=== PATIENT | female | born 1985 | race Caucasian/White ===

== ENCOUNTER 2019-01-16 17:42 | Emergency (ER) | payer MEDICAID, OTHER ==
[~2019-01-16] VITALS: Ht 162.6 cm; Wt 86.2 kg
[~2019-01-16 17:42] MED LIST: CEPH-38; CEPH-38 PO; CEPH500C; CPR500T PO; DCS100C PO; FRS325T PO; HYDR1TAB75 PO; IBP800T PO; NS.65NA45; ONDAN4ODT PO; PREN1TAB39 PO
--- NOTE | 2019-01-16 18:27 | NUR ---
pt states she can not urinate right now
[2019-01-16] MEDS ORDERED: HYDROcodone/APAP 5 MG/325 MG (LORTAB) TAB PO ONE (18:45)
[2019-01-16 18:52] LABS: BILIRUBIN,URINE NEGATIVE (NEGATIVE); CLARITY,URINE SLIGHTLY CLOUDY; COLOR,URINE YELLOW; GLUCOSE, URINE (UA) NEGATIVE (NEGATIVE); KETONES,URINE NEGATIVE (NEGATIVE); LEUKOCYTE ESTERASE ,URINE 3+ (NEGATIVE); NITRITE,URINE NEGATIVE (NEGATIVE); PH,URINE 6 (5-9); PROTEIN,URINE 2+ (NEGATIVE); UROBILINOGEN,URINE NORMAL (NORMAL)
[2019-01-16 18:59] LABS: BACTERIA,URINE MODERATE /HPF; RBC,URINE 50-100 /HPF; WBC,URINE >100 /HPF
--- NOTE | 2019-01-16 19:12 | ED Abdominal Pain ---
General Chief Complaint: Abdominal/GI Problems Stated Complaint: ABD AND BACK PAIN Nursing Triage Note: THE PT IS AMBULATORY TO THE ROOM WITHOUT DIFFICULTY. NO DISTRESS IS SEEN ON ARRIVAL. LOC IS NORMAL FOR TYHE PT. THE PT IS C/O SOME ABD PAIN THAT STYARTED YESTERDAY. Sepsis Screen: No Definite Risk Source of Information: Patient Exam Limitations: No Limitations History of Present Illness Date Seen by Provider: Jan 16, 2019 Time Seen by Provider: 19:09 Initial Comments ER with reports of left lower abdominal pain since last night nausea but no vomiting. No fevers or chills. She did report a little bloody vaginal discharge today. Does have an IUD. Does have some pressure with urination. Timing/Duration: 1-2 Days Severity/Quality: Moderate Location: LLQ Radiation: RLQ Activities at Onset: None Allergies and Home Medications Allergies Coded Allergies: sulfamethoxazole (Unverified Allergy, Mild, 07/04/09) trimethoprim (Unverified Allergy, Mild, 07/04/09) Penicillins (Verified Allergy, Unknown, 10/16/08) Uncoded Allergies: PEROXIDE (Allergy, Mild, 07/04/09) Home Medications Cefuroxime Axetil 500 Mg Tablet, 500 MG PO BID Prescribed by: MARIA G BRASHER on 01/16/191915 Patient Home Medication List Home Medication List Reviewed: Yes Review of Systems Review of Systems Constitutional: see HPI; No chills, No fever EENTM: No Symptoms Reported Respiratory: No Symptoms Reported Cardiovascular: No Symptoms Reported Gastrointestinal: See HPI, Abdominal Pain; Denies Constipated, Denies Diarrhea; Nausea Genitourinary: See HPI Musculoskeletal: no symptoms reported Skin: no symptoms reported Psychiatric/Neurological: No Symptoms Reported Endocrine: No Symptoms Reported Hematologic/Lymphatic: No Symptoms Reported Past Rabqaxp-Eyxjon-Uvdwfu Hx Patient Social History Alcohol Use: Occasionally Uses Recreational Drug Use: No Smoking Status: Light Tobacco Smoker Recent Foreign Travel: No Contact w/Someone Who Travel: No Recent Infectious Disease Expo: No Past Medical History Reproductive Disorders: 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 0oz. [id number]; 0.0 BMI Method:Estimated General Appearance: WD/WN, no apparent distress HEENT: PERRL/EOMI, normal ENT inspection Respiratory: no respiratory distress, no accessory muscle use Gastrointestinal: normal bowel sounds, soft, tenderness Extremities: normal range of motion, non-tender Neurologic/Psychiatric: alert, normal mood/affect, oriented x 3 Skin: normal color, warm/dry Progress/Results/Core Measures Results/Orders Lab Results Laboratory Tests Test 01/16/19 18:47 01/16/19 19:15 Range/Units Urine Color YELLOW Urine Clarity SLIGHTLY CLOUDY Urine pH 6 5-9 Urine Specific Baxley 1.025 H 1.016-1.022 Urine Protein 2+ H NEGATIVE Urine Glucose (UA) NEGATIVE NEGATIVE Urine Ketones NEGATIVE NEGATIVE Urine Nitrite NEGATIVE NEGATIVE Urine Bilirubin NEGATIVE NEGATIVE Urine Urobilinogen NORMAL NORMAL MG/DL Urine Leukocyte Esterase 3+ H NEGATIVE Urine RBC (Auto) 5+ H NEGATIVE Urine RBC 50-100 H /HPF Urine WBC >100 H /HPF Urine Squamous Epithelial Cells 5-10 /HPF Urine Crystals NONE /LPF Urine Bacteria MODERATE H /HPF Urine Casts NONE /LPF Urine Mucus SMALL H /LPF Urine Culture Indicated YES White Blood Count 13.3 H 4.3-11.0 10^3/uL Red Blood Count 4.02 L 4.35-5.85 10^6/uL Hemoglobin 11.5 11.5-16.0 G/DL Hematocrit 36 35-52 % Mean Corpuscular Volume 90 80-99 FL Mean Corpuscular Hemoglobin 29 25-34 PG Mean Corpuscular Hemoglobin Concent 32 32-36 G/DL Red Cell Distribution Width 15.5 H 10.0-14.5 % Platelet Count 170 130-400 10^3/uL Mean Platelet Volume 11.9 H 7.4-10.4 FL Neutrophils (%) (Auto) 74 42-75 % Lymphocytes (%) (Auto) 16 12-44 % Monocytes (%) (Auto) 8 0-12 % Eosinophils (%) (Auto) 2 0-10 % Basophils (%) (Auto) 0 0-10 % Neutrophils # (Auto) 9.8 H 1.8-7.8 X 10^3 Lymphocytes # (Auto) 2.1 1.0-4.0 X 10^3 Monocytes # (Auto) 1.1 H 0.0-1.0 X 10^3 Eosinophils # (Auto) 0.3 0.0-0.3 10^3/uL Basophils # (Auto) 0.0 0.0-0.1 10^3/uL Sodium Level 137 135-145 MMOL/L Potassium Level 4.0 3.6-5.0 MMOL/L Chloride Level 107 98-107 MMOL/L Carbon Dioxide Level 21 21-32 MMOL/L Anion Gap 9 5-14 MMOL/L Blood Urea Nitrogen 12 7-18 MG/DL Creatinine 0.68 0.60-1.30 MG/DL Estimat Glomerular Filtration Rate > 60 BUN/Creatinine Ratio 18 Glucose Level 82 70-105 MG/DL Calcium Level 9.2 8.5-10.1 MG/DL B-Type Natriuretic Peptide 21.6 <100.0 PG/ML My Orders Orders - MARIA G BRASHER FLARE BREAKER Ua Culture If Indicated (01/16/19 18:06) Urine Bedside (01/16/19 18:06) BNP (01/16/19 18:24) Wet Prep (01/16/19 18:37) Neisseria Gonorrhea Swab (01/16/19 18:37) Genital Culture (01/16/19 18:37) Us Non Ob Pelvis Comp/Transvag (01/16/19 18:37) Hydrocodone/Apap 5/325 Tablet (Lortab 5 (01/16/19 18:45) Urine Culture (01/16/19 18:47) Levofloxacin Tablet (Levaquin Tablet) (01/16/19 19:15) Cbc With Automated Diff (01/16/19 19:24) Basic Metabolic Panel (01/16/19 19:24) Medications Given in ED Current Medications Medications Dose Ordered Sig/Timmy Route Start Time Stop Time Status Last Admin Dose Admin Acetaminophen/ Hydrocodone Bitart 1 tab ONCE ONCE PO 01/16/19 18:45 01/16/19 18:46 DC 01/16/19 19:03 1 TAB Levofloxacin 500 mg ONCE ONCE PO 01/16/19 19:15 01/16/19 19:16 DC 01/16/19 19:31 500 MG Vital Signs/I&O 01/16/19 01/16/19 18:08 18:15 Temp 99.2 99.2 Pulse 78 78 Resp 16 16 B/P (MAP) 119/80 (93) 119/80 (93) Blood Pressure Mean: 93 Departure Impression Primary Impression: Urinary tract infection Qualified Codes: N30.01 - Acute cystitis with hematuria Disposition: HOME, SELF-CARE Condition: Stable Departure-Patient Inst. Decision time for Depature: 19:15 Referrals: [facility] (PCP/Family) Primary Care Physician Patient Instructions: Urinary Tract Infection, Adult (DC) Add. Discharge Instructions: 1. Antibiotics as directed 2. Return for any concerns 3. Follow-up with doctor next week 4. All discharge instructions reviewed with patient and/or family. Voiced understanding. Scripts Hydrocodone Bit/Acetaminophen (Hydrocodone/Acetaminophen 5/325mg Tablet) 1 Tab Tab 1-2 EACH PO Q4H PRN for PAIN-MODERATE MDD 10 for 3 Days, #5 TAB 0 Refills Prov: MARIA G BRASHER APRN 01/16/19 Cefuroxime Axetil (Cefuroxime) 500 Mg Tablet 500 MG PO BID, #10 TAB Prov: MARIA G BRASHER APRN 01/16/19 MARIA G BRASHER APRN Jan 16, 2019 19:12
[2019-01-16] MEDS ORDERED: LEVOFLOXACIN 500 MG TAB (LEVAQUIN) PO ONE (19:15)
[2019-01-16] MEDS ORDERED: CEFU500T63 PO (19:16)
--- NOTE | 2019-01-16 19:24 | Diagnostic Imaging Report ---
PROCEDURE: US Non-ob pelvis comp/trans. TECHNIQUE: Multiple realtime grayscale images were obtained of the pelvis in various projections endovaginally. Transabdominal imaging was also performed. INDICATION: Abdominal pain and back pain. FINDINGS: Uterus measures 9.3 x 4.9 x 4.8 cm. Patient does have an IUD. IUD appears to be in an appropriate location within the endometrial canal. Endometrial thickness is 3 mm. No myometrial mass is seen. There are small cervical nabothian cysts Right ovary was not visualized. Left ovary measures 3.7 x 3.8 x 2.6 cm. Blood flow is present. There are small follicles present. Small amount of free fluid in posterior cul-de-sac is identified. IMPRESSION: 1. An IUD appears to be appropriately located in the endometrial canal. 2. Nonvisualized right ovary. 3. Otherwise unremarkable study. Dictated by: Dictated on workstation # [id number]
[2019-01-16 19:31] LABS: BASOPHILS % (AUTO) 0 % (0-10); EOSINOPHILS # (AUTO) 0.3 10^3/uL (0.0-0.3); EOSINOPHILS % (AUTO) 2 % (0-10); HEMATOCRIT 36 % (35-52); HEMOGLOBIN 11.5 G/DL (11.5-16.0); LYMPHOCYTES # (AUTO) 2.1 X 10^3 (1.0-4.0); LYMPHOCYTES % (AUTO) 16 % (12-44); MEAN CORPUSCULAR HEMOGLOBIN 29 PG (25-34); MEAN CORPUSCULAR HGB CONC 32 G/DL (32-36); MEAN CORPUSCULAR VOLUME 90 FL (80-99); MEAN PLATELET VOLUME 11.9 FL (7.4-10.4); MONOCYTES # (AUTO) 1.1 X 10^3 (0.0-1.0); MONOCYTES % (AUTO) 8 % (0-12); NEUTROPHILS # (AUTO) 9.8 X 10^3 (1.8-7.8); NEUTROPHILS % (AUTO) 74 % (42-75); PLATELET COUNT 170 10^3/uL (130-400); RED CELL DISTRIBUTION WIDTH 15.5 % (10.0-14.5); WHITE BLOOD COUNT 13.3 10^3/uL (4.3-11.0)
[2019-01-16 19:41] LABS: BUN/CREATININE RATIO 18; CALCIUM 9.2 MG/DL (8.5-10.1); CARBON DIOXIDE 21 MMOL/L (21-32); CHLORIDE 107 MMOL/L (98-107); CREATININE SERUM 0.68 MG/DL (0.60-1.30); GFR ESTIMATED > 60; GLUCOSE 82 MG/DL (70-105); SODIUM 137 MMOL/L (135-145)
[2019-01-16] MEDS ORDERED: ACHD5005 PO (19:51)
[2019-01-16 19:53] VITALS: BP 134/78
--- OUTSIDE RECORDS SUMMARY | 2019-01-17 00:13 | XMS REPORT ---
Author Author Migration, Doctor Organization [facility] Address Unknown Phone Unavailable Care Team Providers Care Surgical Supply Assistant Name Role Phone Migration, Doctor Unavailable Unavailable PROBLEMS Type Condition ICD9-CM Code HWD02-MO Code Onset Dates Condition Status SNOMED Code Problem Allergic rhinitis due to pollen J30.1 Active 95094515 Problem Seasonal allergic rhinitis due to pollen J30.1 Active 77351124 Problem Constipation, unspecified constipation type K59.00 Active 00508178 Problem Morbid (severe) obesity due to excess calories E66.01 Active 975187716 Problem Routine health maintenance Z00.00 Active 101579795 Problem History of vitamin D deficiency Z86.39 Active 202324941 Problem Body mass index (BMI) of 45.0-49.9 in adult Z68.42 Active 471931583 ALLERGIES No Information ENCOUNTERS Encounter Location Date Diagnosis [facility] [id number] [place] [address] Oct, Morbid obesity E66.01 ; Acute sore throat J02.9 and Strep pharyngitis J02.0 [facility] [id number] [place] [address] Jan, 2018 Viral upper respiratory infection J06.9 and BMI 45.0-49.9, adult Z68.42 [facility] [id number] [place] [address] Apr, Right anterior knee pain M25.561 [facility] [address] [address] Nov, Left acute otitis media H66.92 and Seasonal allergic rhinitis due to pollen J30.1 [facility] [id number] [place] [address] Feb, [facility] [address] [address] Feb, Routine health maintenance Z00.00 ; History of vitamin D deficiency Z86.39 ; Body mass index (BMI) of 45.0-49.9 in adult Z68.42 ; Morbid (severe) obesity due to excess calories E66.01 and Allergic rhinitis due to pollen J30.1 [place] [address] [address] Jan, Muscle spasm M62.838 [place] [address] [address] December, Polyuria R35.8 ; Lower abdominal pain R10.30 and Slow transit constipation K59.[address] [address] December, Allergic rhinitis J30.9 ; Leg cramps R25.2 and Anxiety F41.9 [place] [address] [address] Apr, Eczematous dermatitis 692.9 [place] [address] [address] Mar, Sinusitis 473.9 and Otitis media of both ears 382.9 [place] [address] [address] Nov, [place] [address] [address] Nov, [place] [address] [address] Sep, [place] [address] [address] Sep, [place] [address] [address] Sep, [place] [address] [address] Sep, [facility] [place] [facility] [address] [id number] [place] [address] May, [facility] [place] [facility] [address] [id number] [place] [address] May, [facility] [place] [facility] [address] [id number] [place] [address] Jan, [facility] [place] [facility] [address] [id number] [place] [address] Jan, [facility] [place] [facility] [address] [id number] [place] [address] Jan, [facility] [place] [facility] [address] [id number] [place] [address] Jan, [facility] [place] [facility] [address] [id number] [place] [address] Jan, [facility] [place] [facility] [address] [id number] [place] [address] Jan, [facility] [place] [facility] [address] [id number] [place] [address] Jan, [facility] [place] [facility] [address] [id number] [place] [address] Mar, [facility] [place] [facility] [address] [id number] [place] [address] Mar, [facility] [place] [facility] [address] [id number] [place] [address] Mar, [facility] [place] [facility] [address] [id number] [place] [address] Mar, [facility] [place] [facility] [address] [id number] [place] [address] Mar, [facility] [place] [facility] [address] [id number] [place] [address] 17 Jan, 2013 [facility] [place] [facility] [address] [id number] [place] [address] Oct, [facility] [place] [facility] [address] [id number] [place] [address] Oct, [facility] [place] [facility] [address] [id number] [place] [address] Oct, [facility] [place] [facility] [address] [facility] [id number] [place] [address] Jul, [facility] [place] [facility] [address] [id number] [place] [address] Jun, [facility] [place] [facility] [address] [id number] [place] [address] Jun, [facility] [place] [facility] [address] [id number] [place] [address] Jun, [facility] [place] [facility] [address] [id number] [place] [address] Jun, [facility] [place] [facility] [address] [id number] [place] [address] Jun, [facility] [place] [facility] [address] [id number] [place] [address] Jun, [facility] [place] [facility] [address] [id number] [place] [address] Jun, [facility] [place] [facility] [address] [id number] [place] [address] Jun, [facility] [place] [facility] [address] [id number] [address] Jun, [facility] [place] [facility] [address] [id number] [place] [address] Jun, [facility] [place] [facility] [address] [facility] [id number] [place] [address] Jun, [facility] [place] [facility] [address] [facility] [id number] [place] [address] Jun, [facility] [place] [facility] [address] [id number] [place] [address] May, [facility] [address] [id number] [place] [address] Apr, [facility] [address] [id number] [place] [address] Feb, [facility] [address] [id number] [place] [address] Feb, [facility] [address] [id number] [place] [address] December, [facility] [address] [id number] [place] [address] December, [facility] [address] [id number] [place] [address] December, [facility] [address] [id number] [place] [address] December, [facility] [address] [id number] [place] [address] December, [facility] [address] [id number] [place] [address] Aug, [facility] [address] [id number] [place] [address] Oct, [facility] [address] [id number] [place] [address] Jul, [facility] [address] [id number] [place] [address] May, [facility] [address] [id number] [place] [address] Mar, [facility] [address] [id number] [place] [address] Sep, [facility] [address] [id number] [place] [address] Jul, [facility] [address] [facility] [id number] [place] [address] Jul, [facility] [address] [facility] [id number] [address] May, [facility] [address] [facility] [id number], [place] [address] Mar, IMMUNIZATIONS No Known Immunizations SOCIAL HISTORY Never Assessed REASON FOR VISIT EMR-[facility] [place] PLAN OF CARE VITAL SIGNS MEDICATIONS No Known Medications RESULTS No Results PROCEDURES No Known procedures INSTRUCTIONS MEDICATIONS ADMINISTERED No Known Medications MEDICAL (GENERAL) HISTORY Type Description Date Medical History IBS Surgical History section x3 Hospitalization History surgeries Hospitalization History bradycardia- spent 2 days in the hospital- thinks it was related to prozac/ny-quil combonation Hospitalization History one week in hospital for abdominal pain- unknown etiology
--- OUTSIDE RECORDS SUMMARY | 2019-01-17 00:14 | XMS REPORT ---
Author Author Migration, Doctor Organization [facility] Address Unknown Phone Unavailable Care Team Providers Care Rails Developer Name Role Phone Migration, Doctor Unavailable Unavailable PROBLEMS Type Condition ICD9-CM Code HCQ32-WX Code Onset Dates Condition Status SNOMED Code Problem Allergic rhinitis due to pollen J30.1 Active 26943634 Problem Seasonal allergic rhinitis due to pollen J30.1 Active 56783837 Problem Constipation, unspecified constipation type K59.00 Active 50980555 Problem Morbid (severe) obesity due to excess calories E66.01 Active 394529386 Problem Routine health maintenance Z00.00 Active 352320485 Problem History of vitamin D deficiency Z86.39 Active 021412978 Problem Body mass index (BMI) of 45.0-49.9 in adult Z68.42 Active 851290436 ALLERGIES No Information ENCOUNTERS Encounter Location Date Diagnosis [facility] [id number] [place] [address] Oct, Morbid obesity E66.01 ; Acute sore throat J02.9 and [address] ph[address]itis J02.0 [facility] [id number] [place] [address] Jan, 2018 Viral upper respiratory infection J06.9 and BMI 45.0-49.9, adult Z68.42 [facility] [id number] [place] [address] Apr, Right anterior knee pain M25.561 [facility] [address] [address] Nov, Left acute otitis media H66.92 and Seasonal allergic rhinitis due to pollen J30.1 [facility] [id number] [place] [address] Feb, [facility] [address] [address] Feb, Routine health maintenance Z00.00 ; History of vitamin D deficiency Z86.39 ; Body mass index (BMI) of 45.0-49.9 in adult Z68.42 ; Morbid (severe) obesity due to excess calories E66.01 and Allergic rhinitis due to pollen J30.1 [place] [address] [address] Jan, Muscle spasm M62.838 [place] [address] [address] December, Polyuria R35.8 ; Lower abdominal pain R10.30 and Slow transit constipation K59.[address] [address] December, Allergic rhinitis J30.9 ; Leg cramps R25.2 and Anxiety F41.9 [place] [address] [address] Apr, Eczematous dermatitis 692.9 [place] [address] [address] Mar, Sinusitis 473.9 and Otitis media of both ears 382.9 [place] [address] [address] Nov, [place] [address] [address] Nov, [place] [address] [address] Sep, [place] [address] [address] Sep, [place] [address] [address] Sep, [place] [address] [address] Sep, [facility] [place] [facility] [address] [id number] [place] [address] May, [facility] [place] [facility] [address] [id number] [place] [address] May, [facility] [place] [facility] [address] [id number] [place] [address] Jan, [facility] [place] [facility] [address] [id number] [place] [address] Jan, [facility] [place] [facility] [address] [id number] [place] [address] Jan, [facility] [place] [facility] [address] [id number] [place] [address] Jan, [facility] [place] [facility] [address] [id number] [place] [address] Jan, [facility] [place] [facility] [address] [id number] [place] [address] Jan, [facility] [place] [facility] [address] [id number] [place] [address] Jan, [facility] [place] [facility] [address] [id number] [place] [address] Mar, [facility] [place] [facility] [address] [id number] [place] [address] Mar, [facility] [place] [facility] [address] [id number] [place] [address] Mar, [facility] [place] [facility] [address] [id number] [place] [address] Mar, [facility] [place] [facility] [address] [id number] [place] [address] Mar, [facility] [place] [facility] [address] [id number] [place] [address] 17 Jan, 2013 [facility] [place] [facility] [address] [id number] [place] [address] Oct, [facility] [place] [facility] [address] [id number] [place] [address] Oct, [facility] [place] [facility] [address] [id number] [place] [address] Oct, [facility] [place] [facility] [address] [facility] [id number] [place] [address] Jul, [facility] [place] [facility] [address] [id number] [place] [address] Jun, [facility] [place] [facility] [address] [id number] [place] [address] Jun, [facility] [place] [facility] [address] [id number] [place] [address] Jun, [facility] [place] [facility] [address] [id number] [place] [address] Jun, [facility] [place] [facility] [address] [id number] [place] [address] Jun, [facility] [place] [facility] [address] [id number] [place] [address] Jun, [facility] [place] [facility] [address] [id number] [place] [address] Jun, [facility] [place] [facility] [address] [id number] [place] [address] Jun, [facility] [place] [facility] [address] [id number], [place] [address] Jun, [facility] [place] [facility] [address] [id number] [place] [address] Jun, [facility] [place] [facility] [address] [facility] [id number] [place] [address] Jun, [facility] [place] [facility] [address] [facility] [id number] [place] [address] Jun, [facility] [place] [facility] [address] [id number] [place] [address] May, [facility] [address] [id number] [place] [address] Apr, [facility] [address] [id number] [place] [address] Feb, [facility] [address] [id number] [place] [address] Feb, [facility] [address] [id number] [place] [address] December, [facility] [address] [id number] [place] [address] December, [facility] [address] [id number] [place] [address] December, [facility] [address] [id number] [place] [address] December, [facility] [address] [id number] [place] [address] December, [facility] [address] [id number] [place] [address] Aug, [facility] [address] [id number] [place] [address] Oct, [facility] [address] [id number] [place] [address] Jul, [facility] [address] [id number] [place] [address] May, [facility] [address] [id number] [place] [address] Mar, [facility] [address] [id number] [place] [address] Sep, [facility] [address] [id number] [place] [address] Jul, [facility] [address] [facility] [id number] [place] [address] Jul, [facility] [address] [facility] [id number] [place] [address] May, [facility] [address] [facility] [id number] [address] Mar, IMMUNIZATIONS No Known Immunizations SOCIAL HISTORY Never Assessed REASON FOR VISIT [facility] PLAN OF CARE VITAL SIGNS MEDICATIONS Medication Instructions Dosage Frequency Start Date End Date Duration Status Metronidazole 500 mg 1 tablet by Oral route 2 times per day for 7 days December, Active Flagyl 500 mg 1 tablet by Oral route 2 times per day for 7 days Jan, Active Nitrofurantoin Macrocrystal 100 mg by Oral route 2 times per day for 7 days December, Active Betamethasone Valerate 0.1 % 1 ana cristina by Topical route 2 times per day Disp: 45g Sep, Active Elimite 5 % apply head to toe 1 time per week and leave on for 8-14 hrs and then wash thoroughly repeat in 7 days Sep, Active HydrOXYzine HCl 25 mg take 1 tablet by Oral route 4 times per day Sep, Active PredniSONE 10 mg 1 Tablet 2 times per day for 5 days Take at 8 am and noon. Sep, Active Doxycycline Hyclate 100 mg take 1 tablet (100 mg) by oral route 2 times per day for 7 days Jan, Active RESULTS No Results PROCEDURES No Known procedures INSTRUCTIONS MEDICATIONS ADMINISTERED No Known Medications MEDICAL (GENERAL) HISTORY Type Description Date Medical History IBS Surgical History section x3 Hospitalization History surgeries Hospitalization History bradycardia- spent 2 days in the hospital- thinks it was related to prozac/ny-quil combonation Hospitalization History one week in hospital for abdominal pain- unknown etiology
--- OUTSIDE RECORDS SUMMARY | 2019-01-17 00:14 | XMS REPORT ---
Author Author Migration, Doctor Organization [facility] Address Unknown Phone Unavailable Care Team Providers Care Silk Screen Processor Name Role Phone Migration, Doctor Unavailable Unavailable PROBLEMS Type Condition ICD9-CM Code ZUU60-FO Code Onset Dates Condition Status SNOMED Code Problem Allergic rhinitis due to pollen J30.1 Active 40556029 Problem Seasonal allergic rhinitis due to pollen J30.1 Active 09540087 Problem Constipation, unspecified constipation type K59.00 Active 64936101 Problem Morbid (severe) obesity due to excess calories E66.01 Active 373138830 Problem Routine health maintenance Z00.00 Active 338269898 Problem History of vitamin D deficiency Z86.39 Active 123168383 Problem Body mass index (BMI) of 45.0-49.9 in adult Z68.42 Active 559765264 ALLERGIES No Information ENCOUNTERS Encounter Location Date Diagnosis [facility] IN [facility] [id number] [place] [address] Oct, Morbid obesity E66.01 ; Acute sore throat J02.9 and Strep pharyngitis J02.0 [facility] [id number] [place] [address] Jan, 2018 Viral upper respiratory infection J06.9 and BMI 45.0-49.9, adult Z68.42 [facility] [id number] [place] [address] Apr, Right anterior knee pain M25.561 [facility] [address] [address] Nov, Left acute otitis media H66.92 and Seasonal allergic rhinitis due to pollen J30.1 [facility] [id number] [place] [address] Feb, [facility] [address] [address] Feb, Routine health maintenance Z00.00 ; History of vitamin D deficiency Z86.39 ; Body mass index (BMI) of 45.0-49.9 in adult Z68.42 ; Morbid (severe) obesity due to excess calories E66.01 and Allergic rhinitis due to pollen J30.1 [place] [address] [address] Jan, Muscle spasm M62.838 [place] [address] [address] December, Polyuria R35.8 ; Lower abdominal pain R10.30 and Slow transit constipation K59.[address] [address] December, Allergic rhinitis J30.9 ; Leg cramps R25.2 and Anxiety F41.9 [place] [address] [address] Apr, Eczematous dermatitis 692.9 [place] [address] [address] Mar, Sinusitis 473.9 and Otitis media of both ears 382.9 [place] [address] [address] Nov, [place] [address] [address] Nov, [place] [address] [address] Sep, [place] [address] [address] Sep, [place] [address] [address] Sep, [place] [address] [address] Sep, [facility] [place] [facility] [address] [id number] [place] [address] May, [facility] [place] [facility] [address] [id number] [place] [address] May, [facility] [place] [facility] [address] [id number] [place] [address] Jan, [facility] [place] [facility] [address] [id number] [place] [address] Jan, [facility] [place] [facility] [address] [id number] [place] [address] Jan, [facility] [place] [facility] [address] [id number] [place] [address] Jan, [facility] [place] [facility] [address] [id number] [place] [address] Jan, [facility] [place] [facility] [address] [id number] [place] [address] Jan, [facility] [place] [facility] [address] [id number] [place] [address] Jan, [facility] [place] [facility] [address] [id number] [place] [address] Mar, [facility] [place] [facility] [address] [id number] [place] [address] Mar, [facility] [place] [facility] [address] [id number] [place] [address] Mar, [facility] [place] [facility] [address] [id number] [place] [address] Mar, [facility] [place] [facility] [address] [id number] [place] [address] Mar, [facility] [place] [facility] [address] [id number] [place] [address] 17 Jan, 2013 [facility] [place] [facility] [address] [id number] [place] [address] Oct, [facility] [place] [facility] [address] [id number] [place] [address] Oct, [facility] [place] [facility] [address] [id number] [place] [address] Oct, [facility] [place] [facility] [address] [facility] [id number] [place] [address] Jul, [facility] [place] [facility] [address] [id number] [place] [address] Jun, [facility] [place] [facility] [address] [id number] [place] [address] Jun, [facility] [place] [facility] [address] [id number] [place] [address] Jun, [facility] [place] [facility] [address] [id number] [place] [address] Jun, [facility] [place] [facility] [address] [id number] [place] [address] Jun, [facility] [place] [facility] [address] [id number] [place] [address] Jun, [facility] [place] [facility] [address] [id number] [place] [address] Jun, [facility] [place] [facility] [address] [id number] [place] [address] Jun, [facility] [place] [facility] [address] [id number], [place] [address] Jun, [facility] [place] [facility] [address] [id number] [place] [address] Jun, [facility] [place] [facility] [address] [facility] [id number] [place] [address] Jun, [facility] [place] [facility] [address] [facility] [id number] [place] [address] Jun, [facility] [place] [facility] [address] [id number] [place] [address] May, [facility] [address] [id number] [place] [address] Apr, [facility] [address] [id number] [place] [address] Feb, [facility] [address] [id number] [place] [address] Feb, [facility] [address] [id number] [place] [address] December, [facility] [address] [id number] [place] [address] December, [facility] [address] [id number] [place] [address] December, [facility] [address] [id number] [place] [address] December, [facility] [address] [id number] [place] [address] December, [facility] [address] [id number] [place] [address] Aug, [facility] [address] [id number] [place] [address] Oct, [facility] [address] [id number] [place] [address] Jul, [facility] [address] [id number] [place] [address] May, [facility] [address] [id number] [place] [address] Mar, [facility] [address] [id number] [place] [address] Sep, [facility] [address] [id number] [place] [address] Jul, [facility] [address] [facility] [id number] [place] [address] Jul, [facility] [address] [facility] [id number], [place] [address] May, [facility] [address] [facility] [id number], [place] [address] Mar, IMMUNIZATIONS No Known Immunizations SOCIAL HISTORY Never Assessed REASON FOR VISIT [facility] [place] PLAN OF CARE VITAL SIGNS MEDICATIONS No [...]
--- OUTSIDE RECORDS SUMMARY | 2019-01-17 00:14 | XMS REPORT ---
Author Author Migration, Doctor Organization [facility] Address Unknown Phone Unavailable Care Team Providers Care Estate Planner Name Role Phone Migration, Doctor Unavailable Unavailable PROBLEMS Type Condition ICD9-CM Code [id number] Code Onset Dates Condition Status SNOMED Code Problem Allergic rhinitis due to pollen J30.1 Active 68406514 Problem Seasonal allergic rhinitis due to pollen J30.1 Active 52676679 Problem Constipation, unspecified constipation type K59.00 Active 37767738 Problem Morbid (severe) obesity due to excess calories E66.01 Active 511118932 Problem Routine health maintenance Z00.00 Active 027570966 Problem History of vitamin D deficiency Z86.39 Active 464971148 Problem Body mass index (BMI) of 45.0-49.9 in adult Z68.42 Active 465583207 ALLERGIES No Information ENCOUNTERS Encounter Location Date Diagnosis [facility] [id number] [place] [address] Oct, Morbid obesity E66.01 ; Acute sore throat J02.9 and Strep pharyngitis J02.0 [facility] [place] [id number] [place] [address] Jan, 2018 Viral upper respiratory infection J06.9 and BMI 45.0-49.9, adult Z68.42 [facility] [place] [id number] [place] [address] Apr, Right anterior knee pain M25.561 [facility] [place] [address] [address] Nov, Left acute otitis media H66.92 and Seasonal allergic rhinitis due to pollen J30.1 [facility] [place] [id number] [place] [address] Feb, [facility] [place] [address] [address] Feb, Routine health maintenance Z00.00 ; History of vitamin D deficiency Z86.39 ; Body mass index (BMI) of 45.0-49.9 in adult Z68.42 ; Morbid (severe) obesity due to excess calories E66.01 and Allergic rhinitis due to pollen J30.1 [place] [address] [address] Jan, Muscle spasm M62.838 [place] [address] [address] December, Polyuria R35.8 ; Lower abdominal pain R10.30 and Slow transit constipation K59.[address] [address] December, Allergic rhinitis J30.9 ; Leg cramps R25.2 and Anxiety F41.9 [place] [address] [address] Apr, Eczematous dermatitis 692.9 [place] [address] [address] Mar, Sinusitis 473.9 and Otitis media of both ears 382.9 [place] [address] [address] Nov, [place] [address] [address] Nov, [place] [address] [address] Sep, [place] [address] [address] Sep, [place] [address] [address] Sep, [place] [address] [address] Sep, [facility] [place] [facility] [address] [id number] [place] [address] May, [facility] [place] [facility] [address] [id number] [place] [address] May, [facility] [place] [facility] [address] [id number] [place] [address] Jan, [facility] [place] [facility] [address] [id number] [place] [address] Jan, [facility] [place] [facility] [address] [id number] [place] [address] Jan, [facility] [place] [facility] [address] [id number] [place] [address] Jan, [facility] [place] [facility] [address] [id number] [place] [address] Jan, [facility] [place] [facility] [address] [id number] [place] [address] Jan, [facility] [place] [facility] [address] [id number] [place] [address] Jan, [facility] [place] [facility] [address] [id number] [place] [address] Mar, [facility] [place] [facility] [address] [id number] [place] [address] Mar, [facility] [place] [facility] [address] [id number] [place] [address] Mar, [facility] [place] [facility] [address] [id number] [place] [address] Mar, [facility] [place] [facility] [address] [id number] [place] [address] Mar, [facility] [place] [facility] [address] [id number] [place] [address] 17 Jan, 2013 [facility] [place] [facility] [address] [id number] [place] [address] Oct, [facility] [place] [facility] [address] [id number] [place] [address] Oct, [facility] [place] [facility] [address] [id number] [place] [address] Oct, [facility] [place] [facility] [address] [facility] [id number] [place] [address] Jul, [facility] [place] [facility] [address] [id number] [place] [address] Jun, [facility] [place] [facility] [address] [id number] [place] [address] Jun, [facility] [place] [facility] [address] [id number] [place] [address] Jun, [facility] [place] [facility] [address] [id number] [place] [address] Jun, [facility] [place] [facility] [address] [id number] [place] [address] Jun, [facility] [place] [facility] [address] [id number] [place] [address] Jun, [facility] [place] [facility] [address] [id number] [place] [address] Jun, [facility] [place] [facility] [address] [id number] [place] [address] Jun, [facility] [place] [facility] [address] [id number], [place] [address] Jun, [facility] [place] [facility] [address] [id number] [place] [address] Jun, [facility] [place] [facility] [address] [facility] [id number] [place] [address] Jun, [facility] [place] [facility] [address] [facility] [id number] [place] [address] Jun, [facility] [place] [facility] [address] [id number] [place] [address] May, [facility] [address] [id number] [place] [address] Apr, [facility] [address] [id number] [place] [address] Feb, [facility] [address] [id number] [place] [address] Feb, [facility] [address] [id number] [place] [address] December, [facility] [address] [id number] [place] [address] December, [facility] [address] [id number] [place] [address] December, [facility] [address] [id number] [place] [address] December, [facility] [address] [id number] [place] [address] December, [facility] [address] [id number] [place] [address] Aug, [facility] [address] [id number] [place] [address] Oct, [facility] [address] [id number] [place] [address] Jul, [facility] [address] [id number] [place] [address] May, [facility] [address] [id number] [place] [address] Mar, [facility] [address] [id number] [place] [address] Sep, [facility] [address] [id number] [place] [address] Jul, [facility] [place] [address] [facility] [id number] [place] [address] Jul, [facility] [place] [address] [facility] [id number], [place] [address] May, [facility] [place] [address] [facility] [id number], [place] [address] Mar, IMMUNIZATIONS No Known Immunizations SOCIAL HISTORY Never Assessed REASON FOR VISIT EMR-[facility] PLAN OF CARE VITAL SIGNS MEDICATIONS No [...]
--- OUTSIDE RECORDS SUMMARY | 2019-01-17 00:14 | XMS REPORT ---
Author Author Migration, Doctor Organization [facility] Address Unknown Phone Unavailable Care Team Providers Care Station Baggage Agent Name Role Phone Migration, Doctor Unavailable Unavailable PROBLEMS Type Condition ICD9-CM Code EVM67-ZE Code Onset Dates Condition Status SNOMED Code Problem Allergic rhinitis due to pollen J30.1 Active 72577012 Problem Seasonal allergic rhinitis due to pollen J30.1 Active 54244330 Problem Constipation, unspecified constipation type K59.00 Active 55633908 Problem Morbid (severe) obesity due to excess calories E66.01 Active 805140182 Problem Routine health maintenance Z00.00 Active 687885346 Problem History of vitamin D deficiency Z86.39 Active 534604618 Problem Body mass index (BMI) of 45.0-49.9 in adult Z68.42 Active 891718087 ALLERGIES No Information ENCOUNTERS Encounter Location Date Diagnosis [facility] [id number] [place] [address] Oct, Morbid obesity E66.01 ; Acute sore throat J02.9 and Strep pharyngitis J02.0 [facility] [id number] [place] [address] Jan, 2018 Viral upper respiratory infection J06.9 and BMI 45.0-49.9, adult Z68.42 [facility] [id number] [place] [address] Apr, Right anterior knee pain M25.561 [facility] [address] [address] Nov, Left acute otitis media H66.92 and Seasonal allergic rhinitis due to pollen J30.1 [facility] [id number] [place] [address] Feb, [facility] [address] [address] Feb, Routine health maintenance Z00.00 ; History of vitamin D deficiency Z86.39 ; Body mass index (BMI) of 45.0-49.9 in adult Z68.42 ; Morbid (severe) obesity due to excess calories E66.01 and Allergic rhinitis due to pollen J30.1 [place] [address] [address] Jan, Muscle spasm M62.838 [place] [address] [address] December, Polyuria R35.8 ; Lower abdominal pain R10.30 and Slow transit constipation K59.[address] [address] December, Allergic rhinitis J30.9 ; Leg cramps R25.2 and Anxiety F41.9 [place] [address] [address] Apr, Eczematous dermatitis 692.9 [place] [address] [address] Mar, Sinusitis 473.9 and Otitis media of both ears 382.9 [place] [address] [address] Nov, [place] [address] [address] Nov, [place] [address] [address] Sep, [place] [address] [address] Sep, [place] [address] [address] Sep, [place] [address] [address] Sep, [facility] [place] [facility] [address] [id number] [place] [address] May, [facility] [place] [facility] [address] [id number] [place] [address] May, [facility] [place] [facility] [address] [id number] [place] [address] Jan, [facility] [place] [facility] [address] [id number] [place] [address] Jan, [facility] [place] [facility] [address] [id number] [place] [address] Jan, [facility] [place] [facility] [address] [id number] [place] [address] Jan, [facility] [place] [facility] [address] [id number] [place] [address] Jan, [facility] [place] [facility] [address] [id number] [place] [address] Jan, [facility] [place] [facility] [address] [id number] [place] [address] Jan, [facility] [place] [facility] [address] [id number] [place] [address] Mar, [facility] [place] [facility] [address] [id number] [place] [address] Mar, [facility] [place] [facility] [address] [id number] [place] [address] Mar, [facility] [place] [facility] [address] [id number] [place] [address] Mar, [facility] [place] [facility] [address] [id number] [place] [address] Mar, [facility] [place] [facility] [address] [id number] [place] [address] 17 Jan, 2013 [facility] [place] [facility] [address] [id number] [place] [address] Oct, [facility] [place] [facility] [address] [id number] [place] [address] Oct, [facility] [place] [facility] [address] [id number] [place] [address] Oct, [facility] [place] [facility] [address] [facility] [id number] [place] [address] Jul, [facility] [place] [facility] [address] [id number] [place] [address] Jun, [facility] [place] [facility] [address] [id number] [place] [address] Jun, [facility] [place] [facility] [address] [id number] [place] [address] Jun, [facility] [place] [facility] [address] [id number] [place] [address] Jun, [facility] [place] [facility] [address] [id number] [place] [address] Jun, [facility] [place] [facility] [address] [id number] [place] [address] Jun, [facility] [place] [facility] [address] [id number] [place] [address] Jun, [facility] [place] [facility] [address] [id number] [place] [address] Jun, [facility] [place] [facility] [address] [id number] [place] [address] Jun, [facility] [place] [facility] [address] [id number] [place] [address] Jun, [facility] [place] [facility] [address] [facility] [id number] [place] [address] Jun, [facility] [place] [facility] [address] [facility] [id number] [place] [address] Jun, [facility] [place] [facility] [address] [id number] [place] [address] May, [facility] [address] [id number] [place] [address] Apr, [facility] [address] [id number] [place] [address] Feb, [facility] [address] [id number] [place] [address] Feb, [facility] [address] [id number] [place] [address] December, [facility] [address] [id number] [place] [address] December, [facility] [address] [id number] [place] [address] December, [facility] [address] [id number] [place] [address] December, [facility] [address] [id number] [place] [address] December, [facility] [address] [id number] [place] [address] Aug, [facility] [address] [id number] [place] [address] Oct, [facility] [address] [id number] [place] [address] Jul, [facility] [address] [id number] [place] [address] May, [facility] [address] [id number] [place] [address] Mar, [facility] [address] [id number] [place] [address] Sep, [facility] [address] [id number] [place] [address] Jul, [facility] [address] [facility] [id number] [place] [address] Jul, [facility] [address] [facility] [id number] [place] [address] May, [facility] [address] [facility] [id number] [place] [address] Mar, IMMUNIZATIONS No Known Immunizations SOCIAL HISTORY Never Assessed REASON FOR VISIT EMR-[facility] PLAN OF CARE VITAL SIGNS MEDICATIONS No [...]
--- OUTSIDE RECORDS SUMMARY | 2019-01-17 00:14 | XMS REPORT ---
Author Author Migration, Doctor Organization [facility] Address Unknown Phone Unavailable Care Team Providers Care Child Care Education Coordinator Name Role Phone Migration, Doctor Unavailable Unavailable PROBLEMS Type Condition ICD9-CM Code OMP58-WL Code Onset Dates Condition Status SNOMED Code Problem Allergic rhinitis due to pollen J30.1 Active 76030012 Problem Seasonal allergic rhinitis due to pollen J30.1 Active 66122118 Problem Constipation, unspecified constipation type K59.00 Active 11489310 Problem Morbid (severe) obesity due to excess calories E66.01 Active 564840968 Problem Routine health maintenance Z00.00 Active 778310576 Problem History of vitamin D deficiency Z86.39 Active 381749487 Problem Body mass index (BMI) of 45.0-49.9 in adult Z68.42 Active 918958407 ALLERGIES No Information ENCOUNTERS Encounter Location Date Diagnosis [facility] IN [facility] [id number] [place] [address] Oct, Morbid obesity E66.01 ; Acute sore throat J02.9 and Strep pharyngitis J02.0 [facility] [id number] [place] [address] Jan, 2018 Viral upper respiratory infection J06.9 and BMI 45.0-49.9, adult Z68.42 [facility] [id number] [place] [address] Apr, Right anterior knee pain M25.561 [facility] [address] [address] Nov, Left acute otitis media H66.92 and Seasonal allergic rhinitis due to pollen J30.1 [facility] [id number] [place] [address] Feb, [facility] [address] [address] Feb, Routine health maintenance Z00.00 ; History of vitamin D deficiency Z86.39 ; Body mass index (BMI) of 45.0-49.9 in adult Z68.42 ; Morbid (severe) obesity due to excess calories E66.01 and Allergic rhinitis due to pollen J30.1 [place] [address] [address] Jan, Muscle spasm M62.838 [place] [address] [address] December, Polyuria R35.8 ; Lower abdominal pain R10.30 and Slow transit constipation K59.[address] [address] December, Allergic rhinitis J30.9 ; Leg cramps R25.2 and Anxiety F41.9 [place] [address] [address] Apr, Eczematous dermatitis 692.9 [place] [address] [address] Mar, Sinusitis 473.9 and Otitis media of both ears 382.9 [place] [address] [address] Nov, [place] [address] [address] Nov, [place] [address] [address] Sep, [place] [address] [address] Sep, [place] [address] [address] Sep, [place] [address] [address] Sep, [facility] [place] [facility] [address] [id number] [place] [address] May, [facility] [place] [facility] [address] [id number] [place] [address] May, [facility] [place] [facility] [address] [id number] [place] [address] Jan, [facility] [place] [facility] [address] [id number] [place] [address] Jan, [facility] [place] [facility] [address] [id number] [place] [address] Jan, [facility] [place] [facility] [address] [id number] [place] [address] Jan, [facility] [place] [facility] [address] [id number] [place] [address] Jan, [facility] [place] [facility] [address] [id number] [place] [address] Jan, [facility] [place] [facility] [address] [id number] [place] [address] Jan, [facility] [place] [facility] [address] [id number] [place] [address] Mar, [facility] [place] [facility] [address] [id number] [place] [address] Mar, [facility] [place] [facility] [address] [id number] [place] [address] Mar, [facility] [place] [facility] [address] [id number] [place] [address] Mar, [facility] [place] [facility] [address] [id number] [place] [address] Mar, [facility] [place] [facility] [address] [id number] [place] [address] 17 Jan, 2013 [facility] [place] [facility] [address] [id number] [place] [address] Oct, [facility] [place] [facility] [address] [id number] [place] [address] Oct, [facility] [place] [facility] [address] [id number] [place] [address] Oct, [facility] [place] [facility] [address] [facility] [id number] [place] [address] Jul, [facility] [place] [facility] [address] [id number] [place] [address] Jun, [facility] [place] [facility] [address] [id number] [place] [address] Jun, [facility] [place] [facility] [address] [id number] [place] [address] Jun, [facility] [place] [facility] [address] [id number] [place] [address] Jun, [facility] [place] [facility] [address] [id number] [place] [address] Jun, [facility] [place] [facility] [address] [id number] [place] [address] Jun, [facility] [place] [facility] [address] [id number] [place] [address] Jun, [facility] [place] [facility] [address] [id number] [place] [address] Jun, [facility] [place] [facility] [address] [id number], [place] [address] Jun, [facility] [place] [facility] [address] [id number] [place] [address] Jun, [facility] [place] [facility] [address] [facility] [id number] [place] [address] Jun, [facility] [place] [facility] [address] [facility] [id number] [place] [address] Jun, [facility] [place] [facility] [address] [id number] [place] [address] May, [facility] [address] [id number] [place] [address] Apr, [facility] [address] [id number] [place] [address] Feb, [facility] [address] [id number] [place] [address] Feb, [facility] [address] [id number] [place] [address] December, [facility] [address] [id number] [place] [address] December, [facility] [address] [id number] [place] [address] December, [facility] [address] [id number] [place] [address] December, [facility] [address] [id number] [place] [address] December, [facility] [address] [id number] [place] [address] Aug, [facility] [address] [id number] [place] [address] Oct, [facility] [address] [id number] [place] [address] Jul, [facility] [address] [id number] [place] [address] May, [facility] [address] [id number] [place] [address] Mar, [facility] [address] [id number] [place] [address] Sep, [facility] [address] [id number] [place] [address] Jul, [facility] [address] [facility] [id number] [place] [address] Jul, [facility] [address] [facility] [id number], [place] [address] May, [facility] [address] [facility] [id number], [place] [address] Mar, IMMUNIZATIONS No Known Immunizations SOCIAL HISTORY Never Assessed REASON FOR VISIT EMR-[facility] PLAN OF CARE [...]
--- OUTSIDE RECORDS SUMMARY | 2019-01-17 00:15 | XMS REPORT ---
Author Author Migration, Doctor Organization [facility] Address Unknown Phone Unavailable Care Team Providers Care Floating Labor Gang Supervisor Name Role Phone Migration, Doctor Unavailable Unavailable PROBLEMS Type Condition ICD9-CM Code [id number] Code Onset Dates Condition Status SNOMED Code Problem Allergic rhinitis due to pollen J30.1 Active 42751528 Problem Seasonal allergic rhinitis due to pollen J30.1 Active 70172741 Problem Constipation, unspecified constipation type K59.00 Active 98714864 Problem Morbid (severe) obesity due to excess calories E66.01 Active 331089910 Problem Routine health maintenance Z00.00 Active 195946548 Problem History of vitamin D deficiency Z86.39 Active 536400673 Problem Body mass index (BMI) of 45.0-49.9 in adult Z68.42 Active 200287351 ALLERGIES No Information ENCOUNTERS Encounter Location Date Diagnosis [facility] WALK IN [facility] [id number] [place] [address] Oct, Morbid obesity E66.01 ; Acute sore throat J02.9 and Strep pharyngitis J02.0 [facility] [place] [id number] [place] [address] Jan, 2018 Viral upper respiratory infection J06.9 and BMI 45.0-49.9, adult Z68.42 [facility] [place] [id number] [place] [address] Apr, Right anterior knee pain M25.561 [facility] [place] [address] [address] Nov, Left acute otitis media H66.92 and Seasonal allergic rhinitis due to pollen J30.1 [facility] [place] [id number] [place] [address] Feb, [facility] [place] [address] [address] Feb, Routine health maintenance Z00.00 ; History of vitamin D deficiency Z86.39 ; Body mass index (BMI) of 45.0-49.9 in adult Z68.42 ; Morbid (severe) obesity due to excess calories E66.01 and Allergic rhinitis due to pollen J30.1 [place] [address] [address] Jan, Muscle spasm M62.838 [place] [address] [address] December, Polyuria R35.8 ; Lower abdominal pain R10.30 and Slow transit constipation K59.[address] [address] December, Allergic rhinitis J30.9 ; Leg cramps R25.2 and Anxiety F41.9 [place] [address] [address] Apr, Eczematous dermatitis 692.9 [place] [address] [address] Mar, Sinusitis 473.9 and Otitis media of both ears 382.9 [place] [address] [address] Nov, [place] [address] [address] Nov, [place] [address] [address] Sep, [place] [address] [address] Sep, [place] [address] [address] Sep, [place] [address] [address] Sep, [facility] [place] [facility] [address] [id number] [place] [address] May, [facility] [place] [facility] [address] [id number] [place] [address] May, [facility] [place] [facility] [address] [id number] [place] [address] Jan, [facility] [place] [facility] [address] [id number] [place] [address] Jan, [facility] [place] [facility] [address] [id number] [place] [address] Jan, [facility] [place] [facility] [address] [id number] [place] [address] Jan, [facility] [place] [facility] [address] [id number] [place] [address] Jan, [facility] [place] [facility] [address] [id number] [place] [address] Jan, [facility] [place] [facility] [address] [id number] [place] [address] Jan, [facility] [place] [facility] [address] [id number] [place] [address] Mar, [facility] [place] [facility] [address] [id number] [place] [address] Mar, [facility] [place] [facility] [address] [id number] [place] [address] Mar, [facility] [place] [facility] [address] [id number] [place] [address] Mar, [facility] [place] [facility] [address] [id number] [place] [address] Mar, [facility] [place] [facility] [address] [id number] [place] [address] 17 Jan, 2013 [facility] [place] [facility] [address] [id number] [place] [address] Oct, [facility] [place] [facility] [address] [id number] [place] [address] Oct, [facility] [place] [facility] [address] [id number] [place] [address] Oct, [facility] [place] [facility] [address] [facility] [id number] [place] [address] Jul, [facility] [place] [facility] [address] [id number] [place] [address] Jun, [facility] [place] [facility] [address] [id number] [place] [address] Jun, [facility] [place] [facility] [address] [id number] [place] [address] Jun, [facility] [place] [facility] [address] [id number] [place] [address] Jun, [facility] [place] [facility] [address] [id number] [place] [address] Jun, [facility] [place] [facility] [address] [id number] [place] [address] Jun, [facility] [place] [facility] [address] [id number] [place] [address] Jun, [facility] [place] [facility] [address] [id number] [place] [address] Jun, [facility] [place] [facility] [address] [id number] [place] [address] Jun, [facility] [place] [facility] [address] [id number] [place] [address] Jun, [facility] [place] [facility] [address] [facility] [id number] [place] [address] Jun, [facility] [place] [facility] [address] [facility] [id number] [place] [address] Jun, [facility] [place] [facility] [address] [id number] [place] [address] May, [facility] [address] [id number] [place] [address] Apr, [facility] [address] [id number] [place] [address] Feb, [facility] [address] [id number] [place] [address] Feb, [facility] [address] [id number] [place] [address] December, [facility] [address] [id number] [place] [address] December, [facility] [address] [id number] [place] [address] December, [facility] [address] [id number] [place] [address] December, [facility] [address] [id number] [place] [address] December, [facility] [address] [id number] [place] [address] Aug, [facility] [address] [id number] [place] [address] Oct, [facility] [address] [id number] [place] [address] Jul, [facility] [address] [id number] [place] [address] May, [facility] [address] [id number] [place] [address] Mar, [facility] [address] [id number] [place] [address] Sep, [facility] [address] [id number] [place] [address] Jul, [facility] [place] [address] [facility] [id number] [place] [address] Jul, [facility] [place] [address] [facility] [id number] [place] [address] May, [facility] [place] [address] [facility] [id number] [place] [address] Mar, IMMUNIZATIONS No Known Immunizations SOCIAL HISTORY Never Assessed REASON FOR VISIT [place] [place] OF CARE VITAL SIGNS MEDICATIONS No [...]
--- OUTSIDE RECORDS SUMMARY | 2019-01-17 00:15 | XMS REPORT ---
Author Author Migration, Doctor Organization [facility] Address Unknown Phone Unavailable Care Team Providers Care Babbitter Name Role Phone Migration, Doctor Unavailable Unavailable PROBLEMS Type Condition ICD9-CM Code CJK36-JR Code Onset Dates Condition Status SNOMED Code Problem Allergic rhinitis due to pollen J30.1 Active 16595599 Problem Seasonal allergic rhinitis due to pollen J30.1 Active 03435487 Problem Constipation, unspecified constipation type K59.00 Active 63111644 Problem Morbid (severe) obesity due to excess calories E66.01 Active 036795490 Problem Routine health maintenance Z00.00 Active 535185506 Problem History of vitamin D deficiency Z86.39 Active 639961367 Problem Body mass index (BMI) of 45.0-49.9 in adult Z68.42 Active 051661861 ALLERGIES No Information ENCOUNTERS Encounter Location Date Diagnosis [facility] [id number] [place] [address] Oct, Morbid obesity E66.01 ; Acute sore throat J02.9 and Strep pharyngitis J02.0 [facility] [id number] [place] [address] Jan, 2018 Viral upper respiratory infection J06.9 and BMI 45.0-49.9, adult Z68.42 [facility] [id number] [place] [address] Apr, Right anterior knee pain M25.561 [facility] [address] [address] Nov, Left acute otitis media H66.92 and Seasonal allergic rhinitis due to pollen J30.1 [facility] [id number] [place] [address] Feb, [facility] [address] [address] Feb, Routine health maintenance Z00.00 ; History of vitamin D deficiency Z86.39 ; Body mass index (BMI) of 45.0-49.9 in adult Z68.42 ; Morbid (severe) obesity due to excess calories E66.01 and Allergic rhinitis due to pollen J30.1 [place] [address] [address] Jan, Muscle spasm M62.838 [place] [address] [address] December, Polyuria R35.8 ; Lower abdominal pain R10.30 and Slow transit constipation K59.[address] [address] December, Allergic rhinitis J30.9 ; Leg cramps R25.2 and Anxiety F41.9 [place] [address] [address] Apr, Eczematous dermatitis 692.9 [place] [address] [address] Mar, Sinusitis 473.9 and Otitis media of both ears 382.9 [place] [address] [address] Nov, [place] [address] [address] Nov, [place] [address] [address] Sep, [place] [address] [address] Sep, [place] [address] [address] Sep, [place] [address] [address] Sep, [facility] [place] [facility] [address] [id number] [place] [address] May, [facility] [place] [facility] [address] [id number] [place] [address] May, [facility] [place] [facility] [address] [id number] [place] [address] Jan, [facility] [place] [facility] [address] [id number] [place] [address] Jan, [facility] [place] [facility] [address] [id number] [place] [address] Jan, [facility] [place] [facility] [address] [id number] [place] [address] Jan, [facility] [place] [facility] [address] [id number] [place] [address] Jan, [facility] [place] [facility] [address] [id number] [place] [address] Jan, [facility] [place] [facility] [address] [id number] [place] [address] Jan, [facility] [place] [facility] [address] [id number] [place] [address] Mar, [facility] [place] [facility] [address] [id number] [place] [address] Mar, [facility] [place] [facility] [address] [id number] [place] [address] Mar, [facility] [place] [facility] [address] [id number] [place] [address] Mar, [facility] [place] [facility] [address] [id number] [place] [address] Mar, [facility] [place] [facility] [address] [id number] [place] [address] 17 Jan, 2013 [facility] [place] [facility] [address] [id number] [place] [address] Oct, [facility] [place] [facility] [address] [id number] [place] [address] Oct, [facility] [place] [facility] [address] [id number] [place] [address] Oct, [facility] [place] [facility] [address] [facility] [id number] [place] [address] Jul, [facility] [place] [facility] [address] [id number] [place] [address] Jun, [facility] [place] [facility] [address] [id number] [place] [address] Jun, [facility] [place] [facility] [address] [id number] [place] [address] Jun, [facility] [place] [facility] [address] [id number] [place] [address] Jun, [facility] [place] [facility] [address] [id number] [place] [address] Jun, [facility] [place] [facility] [address] [id number] [place] [address] Jun, [facility] [place] [facility] [address] [id number] [place] [address] Jun, [facility] [place] [facility] [address] [id number] [place] [address] Jun, [facility] [place] [facility] [address] [id number] [address] Jun, [facility] [place] [facility] [address] [id number] [place] [address] Jun, [facility] [place] [facility] [address] [facility] [id number] [place] [address] Jun, [facility] [place] [facility] [address] [facility] [id number] [place] [address] Jun, [facility] [place] [facility] [address] [id number] [place] [address] May, [facility] [address] [id number] [place] [address] Apr, [facility] [address] [id number] [place] [address] Feb, [facility] [address] [id number] [place] [address] Feb, [facility] [address] [id number] [place] [address] December, [facility] [address] [id number] [place] [address] December, [facility] [address] [id number] [place] [address] December, [facility] [address] [id number] [place] [address] December, [facility] [address] [id number] [place] [address] December, [facility] [address] [id number] [place] [address] Aug, [facility] [address] [id number] [place] [address] Oct, [facility] [address] [id number] [place] [address] Jul, [facility] [address] [id number] [place] [address] May, [facility] [address] [id number] [place] [address] Mar, [facility] [address] [id number] [place] [address] Sep, [facility] [address] [id number] [place] [address] Jul, [facility] [address] [facility] [id number] [place] [address] Jul, [facility] [address] [facility] [id number], [place] [address] May, [facility] [address] [facility] [id number] [address] Mar, IMMUNIZATIONS No Known Immunizations SOCIAL HISTORY Never Assessed REASON FOR VISIT [place] [place] C[place] VITAL SIGNS MEDICATIONS No [...]
--- OUTSIDE RECORDS SUMMARY | 2019-01-17 00:15 | XMS REPORT ---
Author Author Migration, Doctor Organization [facility] Address Unknown Phone Unavailable Care Team Providers Care Education Specialist Name Role Phone Migration, Doctor Unavailable Unavailable PROBLEMS Type Condition ICD9-CM Code HGH23-HW Code Onset Dates Condition Status SNOMED Code Problem Allergic rhinitis due to pollen J30.1 Active 88675884 Problem Seasonal allergic rhinitis due to pollen J30.1 Active 80137535 Problem Constipation, unspecified constipation type K59.00 Active 02807636 Problem Morbid (severe) obesity due to excess calories E66.01 Active 426233422 Problem Routine health maintenance Z00.00 Active 064078589 Problem History of vitamin D deficiency Z86.39 Active 889315508 Problem Body mass index (BMI) of 45.0-49.9 in adult Z68.42 Active 848055831 ALLERGIES No Information ENCOUNTERS Encounter Location Date Diagnosis [facility]ALK IN [facility] [id number] [place] [address] Oct, Morbid obesity E66.01 ; Acute sore throat J02.9 and Strep pharyngitis J02.0 [facility] [id number] [place] [address] Jan, 2018 Viral upper respiratory infection J06.9 and BMI 45.0-49.9, adult Z68.42 [facility] [id number] [place] [address] Apr, Right anterior knee pain M25.561 [facility] [address] [address] Nov, Left acute otitis media H66.92 and Seasonal allergic rhinitis due to pollen J30.1 [facility] [id number] [place] [address] Feb, [facility] [address] [address] Feb, Routine health maintenance Z00.00 ; History of vitamin D deficiency Z86.39 ; Body mass index (BMI) of 45.0-49.9 in adult Z68.42 ; Morbid (severe) obesity due to excess calories E66.01 and Allergic rhinitis due to pollen J30.1 [place] [address] [address] Jan, Muscle spasm M62.838 [place] [address] [address] December, Polyuria R35.8 ; Lower abdominal pain R10.30 and Slow transit constipation K59.[address] [address] December, Allergic rhinitis J30.9 ; Leg cramps R25.2 and Anxiety F41.9 [place] [address] [address] Apr, Eczematous dermatitis 692.9 [place] [address] [address] Mar, Sinusitis 473.9 and Otitis media of both ears 382.9 [place] [address] [address] Nov, [place] [address] [address] Nov, [place] [address] [address] Sep, [place] [address] [address] Sep, [place] [address] [address] Sep, [place] [address] [address] Sep, [facility] [place] [facility] [address] [id number] [place] [address] May, [facility] [place] [facility] [address] [id number] [place] [address] May, [facility] [place] [facility] [address] [id number] [place] [address] Jan, [facility] [place] [facility] [address] [id number] [place] [address] Jan, [facility] [place] [facility] [address] [id number] [place] [address] Jan, [facility] [place] [facility] [address] [id number] [place] [address] Jan, [facility] [place] [facility] [address] [id number] [place] [address] Jan, [facility] [place] [facility] [address] [id number] [place] [address] Jan, [facility] [place] [facility] [address] [id number] [place] [address] Jan, [facility] [place] [facility] [address] [id number] [place] [address] Mar, [facility] [place] [facility] [address] [id number] [place] [address] Mar, [facility] [place] [facility] [address] [id number] [place] [address] Mar, [facility] [place] [facility] [address] [id number] [place] [address] Mar, [facility] [place] [facility] [address] [id number] [place] [address] Mar, [facility] [place] [facility] [address] [id number] [place] [address] 17 Jan, 2013 [facility] [place] [facility] [address] [id number] [place] [address] Oct, [facility] [place] [facility] [address] [id number] [place] [address] Oct, [facility] [place] [facility] [address] [id number] [place] [address] Oct, [facility] [place] [facility] [address] [facility]NOTE 3] [id number] [place] [address] Jul, [facility] [place] [facility] [address] [id number] [place] [address] Jun, [facility] [place] [facility] [address] [id number] [place] [address] Jun, [facility] [place] [facility] [address] [id number] [place] [address] Jun, [facility] [place] [facility] [address] [id number] [place] [address] Jun, [facility] [place] [facility] [address] [id number] [place] [address] Jun, [facility] [place] [facility] [address] [id number] [place] [address] Jun, [facility] [place] [facility] [address] [id number] [place] [address] Jun, [facility] [place] [facility] [address] [id number] [place] [address] Jun, [facility] [place] [facility] [address] [id number] [address] Jun, [facility] [place] [facility] [address] [id number] [place] [address] Jun, [facility] [place] [facility] [address] [facility]NOTE 3] [id number] [place] [address] Jun, [facility] [place] [facility] [address] [facility][NOTE 3] [id number] [place] [address] Jun, [facility] [place] [facility] [address] [id number] [place] [address] May, [facility] [address] [id number] [place] [address] Apr, [facility] [address] [id number] [place] [address] Feb, [facility] [address] [id number] [place] [address] Feb, [facility] [address] [id number] [place] [address] December, [facility] [address] [id number] [place] [address] December, [facility] [address] [id number] [place] [address] December, [facility] [address] [id number] [place] [address] December, [facility] [address] [id number] [place] [address] December, [facility] [address] [id number] [place] [address] Aug, [facility] [address] [id number] [place] [address] Oct, [facility] [address] [id number] [place] [address] Jul, [facility] [address] [id number] [place] [address] May, [facility] [address] [id number] [place] [address] Mar, [facility] [address] [id number] [place] [address] Sep, [facility] [address] [id number] [place] [address] Jul, [facility] [address] [facility]NOTE 3] [id number] [place] [address] Jul, [facility] [address] [facility]NOTE 3] [id number] [address] May, [facility] [address] [facility][NOTE [facility]] [id number], [place] [address] Mar, IMMUNIZATIONS No Known Immunizations SOCIAL HISTORY Never Assessed REASON FOR VISIT EMR-[facility] PLAN OF CARE VITAL SIGNS MEDICATIONS No [...]
--- OUTSIDE RECORDS SUMMARY | 2019-01-17 00:15 | XMS REPORT ---
Author Author KING CARLOS MANUEL [facility] Address [address] [place] [address] Care Team Providers Care Willow Machine Tender Name Role Phone CARLOS MANUEL RAUSCH Unavailable PROBLEMS Type Condition ICD9-CM Code KMU08-DI Code Onset Dates Condition Status SNOMED Code Problem Allergic rhinitis due to pollen J30.1 Active 94468320 Problem Constipation, unspecified constipation type K59.00 Active 72865222 Problem Seasonal allergic rhinitis due to pollen J30.1 Active 75272475 Problem Routine health maintenance Z00.00 Active 547502156 Problem Morbid (severe) obesity due to excess calories E66.01 Active 096077269 Problem Body mass index (BMI) of 45.0-49.9 in adult Z68.42 Active 882486624 Problem History of vitamin D deficiency Z86.39 Active 039794861 ALLERGIES Substance Reaction Event Type Date Status Sulfamethoxazole-Trimethoprim Unknown Drug Allergy Jan, Active Penicillin V Potassium Unknown Drug Allergy Jan, Active ENCOUNTERS Encounter Location Date Diagnosis [place] [address] [address] Jan, Viral upper respiratory infection J06.9 and BMI 45.0-49.9, adult Z68.42 [facility] [address] [place] [id number] [place] [address] Apr, Right anterior knee pain M25.561 [facility] [address] [address] Nov, Left acute otitis media H66.92 and Seasonal allergic rhinitis due to pollen J30.1 [facility] [id number] [place] [address] Feb, [facility] [address] [address] Feb, Routine health maintenance Z00.00 ; History of vitamin D deficiency Z86.39 ; Body mass index (BMI) of 45.0-49.9 in adult Z68.42 ; Morbid (severe) obesity due to excess calories E66.01 and Allergic rhinitis due to pollen J30.1 [place] [address] [address] Jan, Muscle spasm M62.838 [place] [address] [address] December, Polyuria R35.8 ; Lower abdominal pain R10.30 and Slow transit constipation K59.[address] [address] December, Allergic rhinitis J30.9 ; Leg cramps R25.2 and Anxiety F41.9 [place] [address] [address] Apr, Eczematous dermatitis 692.9 [place] [address] [address] Mar, Sinusitis 473.9 and Otitis media of both ears 382.9 [place] [address] [address] Nov, [place] [address] [address] Nov, [place] [address] [address] Sep, [place] [address] [address] Sep, [place] [address] [address] Sep, [place] [address] [address] Sep, [place] [address] [facility] [id number] [place] [address] May, [facility] [place] [facility] [address] [id number] [place] [address] May, [facility] [place] [facility] [address] [id number] [place] [address] Jan, [facility] [place] [facility] [address] [id number] [place] [address] Jan, [facility] [place] [facility] [address] [id number] [place] [address] Jan, [facility] [place] [facility] [address] [id number] [place] [address] Jan, [facility] [place] [facility] [address] [id number] [place] [address] Jan, [facility] [place] [facility] [address] [id number] [place] [address] Jan, [facility] [place] [facility] [address] [id number] [place] [address] Jan, [facility] [place] [facility] [address] [id number] [place] [address] Mar, [facility] [place] [facility] [address] [id number] [place] [address] Mar, [facility] [place] [facility] [address] [id number] [place] [address] Mar, [facility] [place] [facility] [address] [id number] [place] [address] Mar, [facility] [place] [facility] [address] [id number] [place] [address] Mar, [facility] [place] [facility] [address] [id number] [place] [address] Jan, [facility] [place] [facility] [address] [id number] [place] [address] Oct, [facility] [place] [facility] [address] [id number] [place] [address] Oct, [facility] [place] [facility] [address] [id number] [place] [address] Oct, [facility] [place] [facility] [address] [id number] [place] [address] Jul, [facility] [place] [facility] [address] [id number] [place] [address] Jun, [facility] [place] [facility] [address] [id number] [place] [address] Jun, [facility] [place] [facility] [address] [id number] [place] [address] Jun, [facility] [place] [facility] [address] [id number] [place] [address] Jun, [facility] [place] [facility] [address] [id number] [place] [address] Jun, [facility] [place] [facility] [address] [id number] [place] [address] Jun, [facility] [place] [facility] [address] [id number] [place] [address] Jun, [facility] [place] [facility] [address] [id number] [place] [address] Jun, [facility] [place] [facility] [address] [id number], [place] [address] Jun, [facility] [place] [facility] [address] [id number] [place] [address] Jun, [facility] [place] [facility] [address] [id number] [place] [address] Jun, [facility] [place] [facility] [address] [id number] [place] [address] Jun, [facility] [place] [facility] [address] [id number] [place] [address] May, [facility] [address] [id number] [place] [address] Apr, [facility] [place] [facility] [address] [id number] [place] [address] Feb, [facility] [address] [id number] [place] [address] Feb, [facility] [place] [facility] [address] [id number] [place] [address] December, [facility] [address] [id number] [place] [address] December, [facility] [place] [facility] [address] [id number] [place] [address] December, [facility] [address] [id number] [place] [address] December, [facility] [address] [id number] [place] [address] December, [facility] [address] [id number] [place] [address] Aug, [facility] [address] [id number] [place] [address] Oct, [facility] [address] [id number] [place] [address] Jul, [facility] [place] [facility] [address] [id number] [place] [address] May, [facility] [place] [facility] [address] [id number] [place] [address] Mar, [facility] [place] [facility] [address] [id number] [place] [address] Sep, [facility] [place] [facility] [address] [id number] [place] [address] Jul, [facility] [address] [facility] [id number], [place] [address] Jul, [facility] [address] [facility] [id number], [place] [address] May, [facility] [address] [facility] [id number], [place] [address] Mar, IMMUNIZATIONS No Known Immunizations SOCIAL HISTORY Never Assessed REASON FOR VISIT Cough Pt c/o cough for 6-8 days, states it is a deep cough, similar to once whe n she had bronchitis YOYL Lowery PLAN OF CARE Activity Details Follow Up 7-10 days if not better Reason:cough VITAL SIGNS Height 60 in 2018-02-01 Weight 232.4 lbs 2018-02-01 Temperature 98.2 degrees Fahrenheit 2018-02-01 Heart Rate 86 bpm 2018-02-01 Respiratory Rate 20 2018-02-01 Oximetry 98 % 2018-02-01 BMI 45.38 kg/m2 2018-02-01 Blood pressure systolic 118 mmHg 2018-02-01 Blood pressure diastolic 72 mmHg 2018-02-01 MEDICATIONS Medication Instructions Dosage Frequency Start Date End Date Duration Status Fluticasone Propionate 50 MCG/ACT Nasally Once a day 2 spray in each nostril twice daily x 1 week then 1 spray in each nare once daily 24h Jan, 30 day(s) Active GuaiFENesin ER 600 MG Orally every 12 hrs 1 tablet as needed 12h Jan, Feb, 14 days Active Sudafed 30 MG Orally every 6 hrs 1 tablet as needed 6h Jan, 05 days Active Ibuprofen 200 MG Orally every 6 hrs 1 tablet as needed 6h Active RESULTS No Results PROCEDURES No Known [...]
--- OUTSIDE RECORDS SUMMARY | 2019-01-17 00:15 | XMS REPORT ---
Author Author Migration, Doctor Organization [facility] Address Unknown Phone Unavailable Care Team Providers Care Clip Loading Machine Adjuster Name Role Phone Migration, Doctor Unavailable Unavailable PROBLEMS Type Condition ICD9-CM Code DSA10-HP Code Onset Dates Condition Status SNOMED Code Problem Allergic rhinitis due to pollen J30.1 Active 67998367 Problem Seasonal allergic rhinitis due to pollen J30.1 Active 20921761 Problem Constipation, unspecified constipation type K59.00 Active 12986227 Problem Morbid (severe) obesity due to excess calories E66.01 Active 035909811 Problem Routine health maintenance Z00.00 Active 750873193 Problem History of vitamin D deficiency Z86.39 Active 088111689 Problem Body mass index (BMI) of 45.0-49.9 in adult Z68.42 Active 906735892 ALLERGIES No Information ENCOUNTERS Encounter Location Date Diagnosis [facility] [address] [id number] [place] [address] Oct, Morbid obesity E66.01 ; Acute sore throat J02.9 and Strep pharyngitis J02.0 [facility] [address] [place] [id number] [place] [address] Jan, 2018 Viral upper respiratory infection J06.9 and BMI 45.0-49.9, adult Z68.42 [facility] [id number] [place] [address] Apr, Right anterior knee pain M25.561 [facility] [address] [address] Nov, Left acute otitis media H66.92 and Seasonal allergic rhinitis due to pollen J30.1 [facility] [address] [place] [id number] [place] [address] Feb, [facility] [address] [address] Feb, Routine health maintenance Z00.00 ; History of vitamin D deficiency Z86.39 ; Body mass index (BMI) of 45.0-49.9 in adult Z68.42 ; Morbid (severe) obesity due to excess calories E66.01 and Allergic rhinitis due to pollen J30.1 [place] [address] [address] Jan, Muscle spasm M62.838 [place] [address] [address] December, Polyuria R35.8 ; Lower abdominal pain R10.30 and Slow transit constipation K59.[address] [address] December, Allergic rhinitis J30.9 ; Leg cramps R25.2 and Anxiety F41.9 [place] [address] [address] Apr, Eczematous dermatitis 692.9 [place] [address] [address] Mar, Sinusitis 473.9 and Otitis media of both ears 382.9 [place] [address] [address] Nov, [place] [address] [address] Nov, [place] [address] [address] Sep, [place] [address] [address] Sep, [place] [address] [address] Sep, [place] [address] [address] Sep, [facility] [place] [facility] [address] [id number] [place] [address] May, [facility] [place] [facility] [address] [id number] [place] [address] May, [facility] [place] [facility] [address] [id number] [place] [address] Jan, [facility] [place] [facility] [address] [id number] [place] [address] Jan, [facility] [place] [facility] [address] [id number] [place] [address] Jan, [facility] [place] [facility] [address] [id number] [place] [address] Jan, [facility] [place] [facility] [address] [id number] [place] [address] Jan, [facility] [place] [facility] [address] [id number] [place] [address] Jan, [facility] [place] [facility] [address] [id number] [place] [address] Jan, [facility] [place] [facility] [address] [id number] [place] [address] Mar, [facility] [place] [facility] [address] [id number] [place] [address] Mar, [facility] [place] [facility] [address] [id number] [place] [address] Mar, [facility] [place] [facility] [address] [id number] [place] [address] Mar, [facility] [place] [facility] [address] [id number] [place] [address] Mar, [facility] [place] [facility] [address] [id number] [place] [address] 17 Jan, 2013 [facility] [place] [facility] [address] [id number] [place] [address] Oct, [facility] [place] [facility] [address] [id number] [place] [address] Oct, [facility] [place] [facility] [address] [id number] [place] [address] Oct, [facility] [place] [facility] [address] [facility] [id number] [place] [address] Jul, [facility] [place] [facility] [address] [id number] [place] [address] Jun, [facility] [place] [facility] [address] [id number] [place] [address] Jun, [facility] [place] [facility] [address] [id number] [place] [address] Jun, [facility] [place] [facility] [address] [id number] [place] [address] Jun, [facility] [place] [facility] [address] [id number] [place] [address] Jun, [facility] [place] [facility] [address] [id number] [place] [address] Jun, [facility] [place] [facility] [address] [id number] [place] [address] Jun, [facility] [place] [facility] [address] [id number] [place] [address] Jun, [facility] [place] [facility] [address] [id number], [place] [address] Jun, [facility] [place] [facility] [address] [id number] [place] [address] Jun, [facility] [place] [facility] [address] [facility] [id number] [place] [address] Jun, [facility] [place] [facility] [address] [facility] [id number] [place] [address] Jun, [facility] [place] [facility] [address] [id number] [place] [address] May, [facility] [address] [id number] [place] [address] Apr, [facility] [address] [id number] [place] [address] Feb, [facility] [address] [id number] [place] [address] Feb, [facility] [address] [id number] [place] [address] December, [facility] [address] [id number] [place] [address] December, [facility] [address] [id number] [place] [address] December, [facility] [address] [id number] [place] [address] December, [facility] [address] [id number] [place] [address] December, [facility] [address] [id number] [place] [address] Aug, [facility] [address] [id number] [place] [address] Oct, [facility] [address] [id number] [place] [address] Jul, [facility] [address] [id number] [place] [address] May, [facility] [address] [id number] [place] [address] Mar, [facility] [address] [id number] [place] [address] Sep, [facility] [address] [id number] [place] [address] Jul, [facility] [address] [facility] [id number] [place] [address] Jul, [facility] [address] [facility] [id number], [place] [address] May, [facility] [address] [facility] [id number], [place] [address] Mar, IMMUNIZATIONS No Known Immunizations SOCIAL HISTORY Never Assessed REASON FOR VISIT EMR-[facility] PLAN OF CARE VITAL SIGNS MEDICATIONS No [...]
--- OUTSIDE RECORDS SUMMARY | 2019-01-17 00:16 | XMS REPORT ---
Author Author RONEY NASSAR [facility] Address [address] [place] [address] Care Team Providers Care Senior Mechanical Project Manager Name Role Phone RONEY NASSAR Unavailable PROBLEMS Type Condition ICD9-CM Code JHF28-UN Code Onset Dates Condition Status SNOMED Code Problem Allergic rhinitis due to pollen J30.1 Active 98391769 Problem Constipation, unspecified constipation type K59.00 Active 34105873 Problem Seasonal allergic rhinitis due to pollen J30.1 Active 36845951 Problem Routine health maintenance Z00.00 Active 515069659 Problem Morbid (severe) obesity due to excess calories E66.01 Active 661736131 Problem Body mass index (BMI) of 45.0-49.9 in adult Z68.42 Active 761642528 Problem History of vitamin D deficiency Z86.39 Active 120941861 ALLERGIES Substance Reaction Event Type Date Status Sulfamethoxazole-Trimethoprim Unknown Drug Allergy Nov, Active Penicillin V Potassium Unknown Drug Allergy Nov, Active ENCOUNTERS Encounter Location Date Diagnosis [place] [id number] [place] [address] Apr, Right anterior knee pain M25.561 [place] [address] [place] [address] Nov, Left acute otitis media H66.92 and Seasonal allergic rhinitis due to pollen J30.1 [facility] [address] [place] [address] Feb, [place] [address] [place] [id number] [place] [address] Feb, Routine health maintenance Z00.00 ; History of vitamin D deficiency Z86.39 ; Body mass index (BMI) of 45.0-49.9 in adult Z68.42 ; Morbid (severe) obesity due to excess calories E66.01 and Allergic rhinitis due to pollen J30.1 [facility] [address] [address] Jan, Muscle spasm M62.838 [facility] [address] [address] December, Polyuria R35.8 ; Lower abdominal pain R10.30 and Slow transit constipation K59.01 [facility] [address] [address] December, Allergic rhinitis J30.9 ; Leg cramps R25.2 and Anxiety F41.9 [place] [address] [address] Apr, Eczematous dermatitis 692.9 [place] [address] [address] Mar, Sinusitis 473.9 and Otitis media of both ears 382.9 [facility] [address] [address] Nov, [facility] [address] [address] Nov, [facility] [address] [address] Sep, [facility] [address] [address] Sep, [facility] [address] [address] Sep, [facility] [address] [address] Sep, [facility] [address] [address] May, [facility] [address] [address] May, [facility] [place] [facility] [address] [id number] [place] [address] Jan, [facility] [place] [facility] [address] [id number] [place] [address] Jan, [facility] [place] [facility] [address] [id number] [place] [address] Jan, [facility] [place] [facility] [address] [id number] [place] [address] Jan, [facility] [place] [facility] [address] [id number] [place] [address] Jan, [facility] [place] [facility] [address] [id number] [place] [address] Jan, [facility] [place] [facility] [address] [id number] [place] [address] Jan, [facility] [place] [facility] [address] [id number] [place] [address] Mar, [facility] [place] [facility] [address] [id number] [place] [address] Mar, [facility] [place] [facility] [address] [id number] [place] [address] Mar, [facility] [place] [facility] [address] [id number] [place] [address] Mar, [facility] [place] [facility] [address] [id number] [place] [address] 14 Mar, 2013 [facility] [place] [facility] [address] [id number] [place] [address] Jan, [facility] [place] [facility] [address] [id number] [place] [address] Oct, [facility] [place] [facility] [address] [id number] [place] [address] Oct, [facility] [place] [facility] [address] [id number] [place] [address] Oct, [facility] [place] [facility] [address] [id number] [place] [address] Jul, [facility] [place] [facility] [address] [id number] [place] [address] Jun, [facility] [place] [facility] [address] [id number] [place] [address] Jun, [facility] [place] [facility] [address] [id number] [place] [address] Jun, [facility] [place] [facility] [address] [id number] [place] [address] Jun, [facility] [place] [facility] [address] [id number] [place] [address] Jun, [facility] [place] [facility] [address] [id number] [place] [address] Jun, [facility] [place] [facility] [address] [id number] [place] [address] Jun, [facility] [place] [facility] [address] [id number] [place] [address] Jun, [facility] [place] [facility] [address] [id number] [place] [address] Jun, [facility] [place] [facility] [address] [id number] [place] [address] Jun, [facility] [place] [facility] [address] [id number] [place] [address] Jun, [facility] [place] [facility] [address] [id number] [place] [address] Jun, [facility] [place] [facility] [address] [id number] [place] [address] May, [facility] [place] [facility] [address] [id number] [place] [address] 24 Apr, 2012 [facility] [place] [facility] [address] [id number] [place] [address] Feb, [facility] [address] [id number] [place] [address] Feb, [facility] [place] [facility] [address] [id number] [place] [address] December, [facility] [address] [id number] [place] [address] December, [facility] [place] [facility] [address] [id number] [place] [address] December, [facility] [address] [id number] [place] [address] December, [facility] [address] [id number] [place] [address] December, [facility] [address] [id number] [place] [address] Aug, [facility] [address] [id number] [place] [address] Oct, [facility] [address] [id number] [place] [address] Jul, [facility] [address] [id number] [place] [address] May, [facility] [place] [facility] [address] [id number] [place] [address] Mar, [facility] [place] [facility] [address] [id number] [place] [address] Sep, [facility] [place] [facility] [address] [id number] [place] [address] Jul, [facility] [place] [facility] [address] [id number] [place] [address] Jul, [facility] [place] [facility] [address] [id number] [place] [address] May, [facility] [address] [facility] [id number] [place] [address] Mar, IMMUNIZATIONS No Known Immunizations SOCIAL HISTORY Never Assessed REASON FOR VISIT Abnormal cramping, RLQ pain, nausea x 2 days--DBennettRN, body aches, headache, ear aches "stabbing pain in ear drum" intermittent several weeks PLAN OF CARE Activity Details Follow Up prn Reason: VITAL SIGNS Height 60 in 2016-12-02 Weight 229 lbs 2016-12-02 Temperature 97.8 degrees Fahrenheit 2016-12-02 Heart Rate 90 bpm 2016-12-02 Respiratory Rate 20 2016-12-02 BMI 44.72 kg/m2 2016-12-02 Blood pressure systolic 124 mmHg 2016-12-02 Blood pressure diastolic 80 mmHg 2016-12-02 MEDICATIONS Medication Instructions Dosage Frequency Start Date End Date Duration Status Cefdinir 300 MG Orally every 12 hrs 1 capsule 12h Nov, Nov, 10 day(s) Active Ibuprofen 200 MG Orally every 6 [...]
--- OUTSIDE RECORDS SUMMARY | 2019-01-17 00:16 | XMS REPORT ---
Author Author MAGDALENA FRITZ [facility] eClinicalWorks Address Unknown Phone Unavailable Care Team Providers Care Publishing Specialist Name Role Phone MAGDALENA FRITZ CP Unavailable Allergies, Adverse Reactions, Alerts Substance Reaction Event Type Sulfamethoxazole-Trimethoprim Info Not Available Drug Allergy Penicillin V Potassium Info Not Available Drug Allergy Problems Problem Type Condition ICD-9 Code Onset Dates Condition Status Problem Screening for malignant neoplasm of the cervix V76.2 Active Problem Unspecified breast screening V76.10 Active Problem Special screening examination, human papillomavirus [HPV] V73.81 Active Problem Urgency of urination 788.63 Active Problem Acute upper respiratory infections of unspecified site 465.9 Active Problem Acute sinusitis, unspecified 461.9 Active Problem Cervicitis and endocervicitis 616.0 Active Problem Dietary surveillance and counseling V65.3 Active Problem Postnasal drip 784.91 Active Problem Surveillance of previously prescribed intrauterine contraceptive device V25.42 Active Assessment Otitis media of both ears 382.9 Active Assessment Sinusitis 473.9 Active Problem Irritable bowel syndrome 564.1 Active Problem Other general counseling and advice for contraceptive management V25.09 Active Problem Leukorrhea, not specified as infective 623.5 Active Problem Urinary tract infection, site not specified 599.0 Active Problem Other specified symptom associated with female genital organs 625.8 Active Problem Contact dermatitis and other eczema, due to unspecified cause 692.9 Active Medications Medication Code System Code Instructions Start Date End Date Status Dosage Ibuprofen [facility] [address]-02 200 MG Orally every 6 hrs 1 tablet as needed Azithromycin [facility] [address]-13 250 MG Orally Once a day Apr 09, 2015 Apr 16, 2015 2 tablets on the first day, then 1 tablet daily for 6 days Procedures Procedure Coding System Code Date Office Visit, Est Pt., Level 3 CPT-4 62735 Apr 09, 2015 Vital Signs Date/Time: Apr 09, 2015 Temperature 97.8 F Weight 229.1 lbs Height 60 in BMI 44.74 Index Blood Pressure Diastolic 78 mmHg Blood Pressure Systolic 116 mmHg Cardiac Monitoring Heart Rate 70 bpm Results No Known Results Summary Purpose eClinicalWorks Submission
--- OUTSIDE RECORDS SUMMARY | 2019-01-17 00:16 | XMS REPORT ---
Author Author SANDOVALEVELYN [facility] Address [address] [place] [address] Care Team Providers Care Framer Name Role Phone EVELYN SANDOVAL Unavailable PROBLEMS Type Condition ICD9-CM Code CGC72-[place] Code Onset Dates Condition Status SNOMED Code Problem Allergic rhinitis due to pollen J30.1 Active 04046485 Problem Constipation, unspecified constipation type K59.00 Active 43336179 Problem Seasonal allergic rhinitis due to pollen J30.1 Active 16943978 Problem Routine health maintenance Z00.00 Active 607409827 Problem Morbid (severe) obesity due to excess calories E66.01 Active 795714563 Problem Body mass index (BMI) of 45.0-49.9 in adult Z68.42 Active 297939165 Problem History of vitamin D deficiency Z86.39 Active 974277771 ALLERGIES Substance Reaction Event Type Date Status Sulfamethoxazole-Trimethoprim Unknown Drug Allergy Apr, Active Penicillin V Potassium Unknown Drug Allergy Apr, Active ENCOUNTERS Encounter Location Date Diagnosis [place] [id number] [place] [address] Apr, Right anterior knee pain M25.561 [place] [id number] [place] [address] Nov, Left acute otitis media H66.92 and Seasonal allergic rhinitis due to pollen J30.1 [facility] [id number] [place] [address] Feb, [place] [address] [place] [id number] [place] [address] Feb, Routine health maintenance Z00.00 ; History of vitamin D deficiency Z86.39 ; Body mass index (BMI) of 45.0-49.9 in adult Z68.42 ; Morbid (severe) obesity due to excess calories E66.01 and Allergic rhinitis due to pollen J30.1 [facility] [address] [address] Jan, Muscle spasm M62.838 [facility] [address] [address] December, Polyuria R35.8 ; Lower abdominal pain R10.30 and Slow transit constipation K59.01 [facility] [address] [address] December, Allergic rhinitis J30.9 ; Leg cramps R25.2 and Anxiety F41.9 [place] [address] [address] Apr, Eczematous dermatitis 692.9 [place] [address] [address] Mar, Sinusitis 473.9 and Otitis media of both ears 382.9 [facility] [address] [address] Nov, [facility] [address] [address] Nov, [facility] [address] [address] Sep, [facility] [address] [address] Sep, [facility] [address] [address] Sep, [facility] [address] [address] Sep, [facility] [address] [address] May, [facility] [address] [address] May, [facility] [place] [facility] [address] [id number] [place] [address] Jan, [facility] [place] [facility] [address] [id number] [place] [address] Jan, [facility] [place] [facility] [address] [id number] [place] [address] Jan, [facility] [place] [facility] [address] [id number] [place] [address] Jan, [facility] [place] [facility] [address] [id number] [place] [address] Jan, [facility] [place] [facility] [address] [id number] [place] [address] Jan, [facility] [place] [facility] [address] [id number] [place] [address] Jan, [facility] [place] [facility] [address] [id number] [place] [address] Mar, [facility] [place] [facility] [address] [id number] [place] [address] Mar, [facility] [place] [facility] [address] [id number] [place] [address] Mar, [facility] [place] [facility] [address] [id number] [place] [address] Mar, [facility] [place] [facility] [address] [id number] [place] [address] 14 Mar, 2013 [facility] [place] [facility] [address] [id number] [place] [address] Jan, [facility] [place] [facility] [address] [id number] [place] [address] Oct, [facility] [place] [facility] [address] [id number] [place] [address] Oct, [facility] [place] [facility] [address] [id number] [place] [address] Oct, [facility] [place] [facility] [address] [id number] [place] [address] Jul, [facility] [place] [facility] [address] [id number] [place] [address] Jun, [facility] [place] [facility] [address] [id number] [place] [address] Jun, [facility] [place] [facility] [address] [id number] [place] [address] Jun, [facility] [place] [facility] [address] [id number] [place] [address] Jun, [facility] [place] [facility] [address] [id number] [place] [address] Jun, [facility] [place] [facility] [address] [id number] [place] [address] Jun, [facility] [place] [facility] [address] [id number] [place] [address] Jun, [facility] [place] [facility] [address] [id number] [place] [address] Jun, [facility] [place] [facility] [address] [id number] [place] [address] Jun, [facility] [place] [facility] [address] [id number] [place] [address] Jun, [facility] [place] [facility] [address] [id number] [place] [address] Jun, [facility] [place] [facility] [address] [id number] [place] [address] Jun, [facility] [place] [facility] [address] [id number] [place] [address] May, [facility] [place] [facility] [address] [id number] [place] [address] 24 Apr, 2012 [facility] [place] [facility] [address] [id number] [place] [address] Feb, [facility] [address] [id number] [place] [address] Feb, [facility] [place] [facility] [address] [id number] [place] [address] December, [facility] [address] [id number] [place] [address] December, [facility] [place] [facility] [address] [id number] [place] [address] December, [facility] [address] [id number] [place] [address] December, [facility] [address] [id number] [place] [address] December, [facility] [address] [id number] [place] [address] Aug, [facility] [address] [id number] [place] [address] Oct, [facility] [address] [id number] [place] [address] Jul, [facility] [address] [id number] [place] [address] May, [facility] [place] [facility] [address] [id number] [place] [address] Mar, [facility] [place] [facility] [address] [id number] [place] [address] Sep, [facility] [place] [facility] [address] [id number] [place] [address] Jul, [facility] [place] [facility] [address] [id number] [place] [address] Jul, [facility] [place] [facility] [address] [id number] [place] [address] May, [facility] [address] [facility] [id number] [place] [address] Mar, IMMUNIZATIONS No Known Immunizations SOCIAL HISTORY Never Assessed REASON FOR VISIT Pain (acute), right knee---DBennettRN, began Tuesday morning, pt woke up and knee was cracking and popping, pain hasn't improved and has began to swell PLAN OF CARE Activity Details Follow Up prn Reason: VITAL SIGNS Height 60 in 2017-05-10 Weight 225 lbs 2017-05-10 Temperature 97.9 degrees Fahrenheit 2017-05-10 Heart Rate 100 bpm 2017-05-10 Respiratory Rate 20 2017-05-10 BMI 43.94 kg/m2 2017-05-10 Blood pressure systolic 120 mmHg 2017-05-10 Blood pressure diastolic 80 mmHg 2017-05-10 MEDICATIONS Medication Instructions Dosage Frequency Start Date End Date Duration Status Ibuprofen 200 MG Orally every 6 hrs 1 tablet as needed 6h Active PredniSONE 10 mg Orally Once a day 4 tabx 4 days, 3 tabs x 4 days, 2 tabs x 4 days, then 1 tab x 4 days 24h Apr, May, 16 days Active RESULTS No Results PROCEDURES No Known [...]
--- OUTSIDE RECORDS SUMMARY | 2019-01-17 00:16 | XMS REPORT ---
Author Author MAGDALENA FRITZ Organization eClinicalWorks Address Unknown Phone Unavailable Care Team Providers Care Exhaust Tender Name Role Phone MAGDALENA FRITZ CP Unavailable [...] prescribed intrauterine contraceptive device V25.42 Active Assessment Eczematous dermatitis 692.9 Active Problem Irritable bowel syndrome 564.1 Active [...] Instructions Start Date End Date Status Dosage PredniSONE [facility] [address]-77 10 MG Orally Twice a day Apr 24, 2015 May 01, 2015 1 tablet with food or milk Procedures Procedure Coding System Code Date Office Visit, Est Pt., Level 3 CPT-4 62888 Apr 24, 2015 Vital Signs Date/Time: Apr 24, 2015 Temperature 97.2 F Weight 229 lbs Height 60 in BMI 44.72 Index Blood Pressure Diastolic 64 mmHg Blood Pressure Systolic 112 mmHg Cardiac Monitoring Heart Rate 70 bpm Results No Known Results Summary Purpose eClinicalWorks Submission
--- OUTSIDE RECORDS SUMMARY | 2019-01-17 00:17 | XMS REPORT | Continuity of Care Document ---
Author Organization Unknown Address Unknown Allergies Active Description Code Type Severity Reaction Onset Reported/Identified Relationship to Patient Clinical Status Yes NKANo Known Allergies NKA Miscellaneous Allergy Unknown N/A 12/04/2006 Yes Penicillins Drug Allergy N/A N/A 03/27/2008 Yes Penicillins Drug Allergy 03/27/2008 Yes Penicillins [id number] Drug Allergy Unknown N/A 10/16/2008 Yes Claritin Drug Allergy N/A N/A 02/17/2009 Yes Claritin Drug Allergy 02/17/2009 Yes PEROXIDE PEROXIDE Mild N/A 07/04/2009 Yes sulfamethoxazole [id number] Drug Allergy Mild N/A 07/04/2009 Yes trimethoprim [id number] Drug Allergy Mild N/A 07/04/2009 Yes hydrogen peroxide topical Drug Allergy 09/09/2009 Yes sulfa drug Drug Allergy 09/09/2009 Medications There is no data. Problems Date Dx Coded Attending Type Code Diagnosis Diagnosed By 03/12/2008 MARBELLA POWERS DO 296.90 MOOD DISORDER 03/12/2008 MARBELLA POWERS DO V22.0 PC NORMAL FIRST 03/12/2008 GRAY SOTO APRN 296.90 MOOD DISORDER 03/12/2008 GRAY SOTO APRN V22.0 PC NORMAL FIRST 03/12/2008 CYNDI VEGA APRN A 296.90 MOOD DISORDER 03/12/2008 GARY ROBERTO CYNDI A V22.0 PC NORMAL FIRST 03/12/2008 GARY ROBERTO CYNDI A 296.90 MOOD DISORDER 03/12/2008 JENNIFER VEGA APRNIDI A V22.0 PC NORMAL FIRST 03/12/2008 KATINA BANGURA APRN 296.90 MOOD DISORDER 03/12/2008 KATINA BANGURA APRN R V22.0 PC NORMAL FIRST 03/12/2008 CYNDI VEGA APRN A 296.90 MOOD DISORDER 03/12/2008 CYNDI VEGA APRN A V22.0 PC NORMAL FIRST 03/27/2008 MARBELLA POWERS DO 654.20 PREVIOUS DELIVERY UNSPECIFIED TO EPISODE OF CARE IN 03/27/2008 MARBELLA POWERS DO V22.1 PC OTHER NORMAL 03/27/2008 GRAY SOTO APRN 654.20 PREVIOUS DELIVERY UNSPECIFIED TO EPISODE OF CARE IN 03/27/2008 GRAY SOTO APRN V22.1 PC OTHER NORMAL 03/27/2008 JENNIFER VEGA APRNIDI A 654.20 PREVIOUS DELIVERY UNSPECIFIED TO EPISODE OF CARE IN 03/27/2008 GARY ROBERTO CYNDI A V22.1 PC OTHER NORMAL 03/27/2008 JENNIFER VEGA APRNIDI A 654.20 PREVIOUS DELIVERY UNSPECIFIED TO EPISODE OF CARE IN 03/27/2008 JENNIFER VEGA APRNIDI A V22.1 PC OTHER NORMAL 03/27/2008 DEBORAH BANGURA APRNINA R 654.20 PREVIOUS DELIVERY UNSPECIFIED TO EPISODE OF CARE IN 03/27/2008 WILLEM ROBERTO KATINA R V22.1 PC OTHER NORMAL 03/27/2008 JENNIFER VEGA APRNIDI A 654.20 PREVIOUS DELIVERY UNSPECIFIED TO EPISODE OF CARE IN 03/27/2008 JENNIFER VEGA APRNIDI A V22.1 PC OTHER NORMAL 04/17/2008 MARBLELA POWERS DO 795.0 ABNORMAL PAP SMEAR ASCUS 04/17/2008 MARBELLA POWERS DO V74.5 SCREENING EXAMINATION FOR VENEREAL DISEASE 04/17/2008 GRAY SOTO APRN 795.0 ABNORMAL PAP SMEAR ASCUS 04/17/2008 GRAY SOTO APRN V74.5 SCREENING EXAMINATION FOR VENEREAL DISEASE 04/17/2008 JENNIFER VEGA APRNIDI A 795.0 ABNORMAL PAP SMEAR ASCUS 04/17/2008 CYNDI VEGA APRN A V74.5 SCREENING EXAMINATION FOR VENEREAL DISEASE 04/17/2008 JENNIFER VEGA APRNIDI A 795.0 ABNORMAL PAP SMEAR ASCUS 04/17/2008 CYNDI VEGA APRN A V74.5 SCREENING EXAMINATION FOR VENEREAL DISEASE 04/17/2008 DEBORAH BANGURA APRNINA R 795.0 ABNORMAL PAP SMEAR ASCUS 04/17/2008 WILLEM LOCOMOTIVE OPERATOR HELPER, KATINA R V74.5 SCREENING EXAMINATION FOR VENEREAL DISEASE 04/17/2008 GARY LOCOMOTIVE OPERATOR HELPER, CYNDI A 795.0 ABNORMAL PAP SMEAR ASCUS 04/17/2008 GARY LOCOMOTIVE OPERATOR HELPER, CYNDI A V74.5 SCREENING EXAMINATION FOR VENEREAL DISEASE 04/26/2008 MARBELLA POWERS DO K 079.98 CHLAMYDIA 04/26/2008 GRAY SOTO APRN 079.98 CHLAMYDIA 04/26/2008 GARY LOCOMOTIVE OPERATOR HELPER, CYNDI A 079.98 CHLAMYDIA 04/26/2008 GARY LOCOMOTIVE OPERATOR HELPER, CYNDI A 079.98 CHLAMYDIA 04/26/2008 WILLEM ROBERTO, KATINA R 079.98 CHLAMYDIA 04/26/2008 GARY LOCOMOTIVE OPERATOR HELPER, CYNDI A 079.98 CHLAMYDIA 08/13/2008 MARBELLA POWERS DO K 616.10 VAGINITIS VULVOVAGINITIS UNSPECIFIED 08/13/2008 GRAY SOTO APRN 616.10 VAGINITIS VULVOVAGINITIS UNSPECIFIED 08/13/2008 GARY LOCOMOTIVE OPERATOR HELPER, CYNDI A 616.10 VAGINITIS VULVOVAGINITIS UNSPECIFIED 08/13/2008 GARY LOCOMOTIVE OPERATOR HELPER, CYNDI A 616.10 VAGINITIS VULVOVAGINITIS UNSPECIFIED 08/13/2008 WILLEM ROBERTO, KATINA R 616.10 VAGINITIS VULVOVAGINITIS UNSPECIFIED 08/13/2008 GARY LOCOMOTIVE OPERATOR HELPER, CYNDI A 616.10 VAGINITIS VULVOVAGINITIS UNSPECIFIED 11/18/2008 MARBELLA POWERS DO 427.89 OTHER SPECIFIED CARDIAC DYSRHYTHMIAS 11/18/2008 MARBELLA POWERS DO 535.00 ACUTE GASTRITIS (WITHOUT HEMORRHAGE) 11/18/2008 GRAY SOTO APRN 427.89 OTHER SPECIFIED CARDIAC DYSRHYTHMIAS 11/18/2008 GRAY SOTO APRN 535.00 ACUTE GASTRITIS (WITHOUT HEMORRHAGE) 11/18/2008 GARY LOCOMOTIVE OPERATOR HELPER, CYNDI A 427.89 OTHER SPECIFIED CARDIAC DYSRHYTHMIAS 11/18/2008 GARY LOCOMOTIVE OPERATOR HELPER, CYNDI A 535.00 ACUTE GASTRITIS (WITHOUT HEMORRHAGE) 11/18/2008 GARYJuan M ROBERTO CYNDI A 427.89 OTHER SPECIFIED CARDIAC DYSRHYTHMIAS 11/18/2008 GARY LOCOMOTIVE OPERATOR HELPER, CYNDI A 535.00 ACUTE GASTRITIS (WITHOUT HEMORRHAGE) 11/18/2008 KATINA BANGURA APRN R 427.89 OTHER SPECIFIED CARDIAC DYSRHYTHMIAS 11/18/2008 DEBORAH BANGURA APRNINA R 535.00 ACUTE GASTRITIS (WITHOUT HEMORRHAGE) 11/18/2008 GARY LOCOMOTIVE OPERATOR HELPER, CYNDI A 427.89 OTHER SPECIFIED CARDIAC DYSRHYTHMIAS 11/18/2008 GARY LOCOMOTIVE OPERATOR HELPER, CYNDI A 535.00 ACUTE GASTRITIS (WITHOUT HEMORRHAGE) 12/20/2008 MARBELLA POWERS DO V72.31 INSPECTOR REPAIRER SANDSTONE EXAM, ROUTINE 12/20/2008 GRAY SOTO APRN V72.31 INSPECTOR REPAIRER SANDSTONE EXAM, ROUTINE 12/20/2008 GARY ROBERTO, CYNDI A V72.31 INSPECTOR REPAIRER SANDSTONE EXAM, ROUTINE 12/20/2008 GARY ROBERTO, CYNDI A V72.31 INSPECTOR REPAIRER SANDSTONE EXAM, ROUTINE 12/20/2008 KATINA BANGURA APRN R V72.31 INSPECTOR REPAIRER SANDSTONE EXAM, ROUTINE 12/20/2008 GARY ROBERTO, CYNDI A V72.31 INSPECTOR REPAIRER SANDSTONE EXAM, ROUTINE 02/07/2009 MARBELLA POWERS DO 300.01 AN PANIC DIS W/O AGORA 02/07/2009 GRAY SOTO APRN 300.01 AN PANIC DIS W/O AGORA 02/07/2009 GARY ROBERTO, CYNDI A 300.01 AN PANIC DIS W/O AGORA 02/07/2009 GARY ROBERTO, CYNDI A 300.01 AN PANIC DIS W/O AGORA 02/07/2009 KATINA BANGURA APRN 300.01 AN PANIC DIS W/O AGORA 02/07/2009 GARY LOCOMOTIVE OPERATOR HELPER, CYNDI A 300.01 AN PANIC DIS W/O AGORA 02/12/2009 MARBELLA POWERS DO 795.03 Pap Smear (+) Low Grade Squamous Intraepithelial Lesion 02/12/2009 GRAY SOTO APRN 795.03 Pap Smear (+) Low Grade Squamous Intraepithelial Lesion 02/12/2009 GARY ROBERTO, CYNDI A 795.03 Pap Smear (+) Low Grade Squamous Intraepithelial Lesion 02/12/2009 GARY ROBERTO, CYNDI A 795.03 Pap Smear (+) Low Grade Squamous Intraepithelial Lesion 02/12/2009 WILLEM LOCOMOTIVE OPERATOR HELPER, KATINA R 795.03 Pap Smear (+) Low Grade Squamous Intraepithelial Lesion 02/12/2009 GARY LOCOMOTIVE OPERATOR HELPER, CYNDI A 795.03 Pap Smear (+) Low Grade Squamous Intraepithelial Lesion 02/17/2009 MARBELLA POWERS DO K 477.9 RHINITIS 02/17/2009 LAMBERT POWERS DOA K 622.11 CERVICAL DYSPLASIA: MILD 02/17/2009 MARBELLA POWERS DO K 786.05 SHORTNESS OF BREATH 02/17/2009 GRAY SOTO APRN M 477.9 RHINITIS 02/17/2009 GRAY SOTO APRN 622.11 CERVICAL DYSPLASIA: MILD 02/17/2009 GRAY SOTO APRN M 786.05 SHORTNESS OF BREATH 02/17/2009 GARYJuan M ROBERTO CYNDI A 477.9 RHINITIS 02/17/2009 GARY LOCOMOTIVE OPERATOR HELPER, CYNDI A 622.11 CERVICAL DYSPLASIA: MILD 02/17/2009 GARY APRN, CYNDI A 786.05 SHORTNESS OF BREATH 02/17/2009 GARY ROBERTO CYNDI A 477.9 RHINITIS 02/17/2009 GARY LOCOMOTIVE OPERATOR HELPER, CYNDI A 622.11 CERVICAL DYSPLASIA: MILD 02/17/2009 GARY LOCOMOTIVE OPERATOR HELPER, CYNDI A 786.05 SHORTNESS OF BREATH 02/17/2009 WILLEM ROBERTO KATINA R 477.9 RHINITIS 02/17/2009 WILLEM LOCOMOTIVE OPERATOR HELPER, KATINA R 622.11 CERVICAL DYSPLASIA: MILD 02/17/2009 WILLEM FELISA, KATINA R 786.05 SHORTNESS OF BREATH 02/17/2009 GARYJuan M ROBERTO CYNDI A 477.9 RHINITIS 02/17/2009 GARY LOCOMOTIVE OPERATOR HELPER, CYNDI A 622.11 CERVICAL DYSPLASIA: MILD 02/17/2009 GARY LOCOMOTIVE OPERATOR HELPER, CYNDI A 786.05 SHORTNESS OF BREATH 05/15/2009 GIO NICKERSONMARBELLA K 461.9 Sinusitis Acute 05/15/2009 GRAY SOTO APRN 461.9 Sinusitis Acute 05/15/2009 GARY LOCOMOTIVE OPERATOR HELPER, CYNDI A 461.9 Sinusitis Acute 05/15/2009 GARY LOCOMOTIVE OPERATOR HELPER, CYNDI A 461.9 Sinusitis Acute 05/15/2009 WILLEM ROBERTO KATINA R 461.9 Sinusitis Acute 05/15/2009 GARY LOCOMOTIVE OPERATOR HELPER, CYNDI A 461.9 Sinusitis Acute 09/09/2009 MARBELLA POWERS DO K 616.10 VAGINITIS 09/09/2009 MARBELLA POWERS DO K 780.79 FATIGUE 09/09/2009 GRAY SOTO APRN 616.10 VAGINITIS 09/09/2009 GRAY SOTO APRN 780.79 FATIGUE 09/09/2009 GARY LOCOMOTIVE OPERATOR HELPER, CYNDI A 616.10 VAGINITIS 09/09/2009 GARY LOCOMOTIVE OPERATOR HELPER, CYNDI A 780.79 FATIGUE 09/09/2009 GARY LOCOMOTIVE OPERATOR HELPER, CYNDI A 616.10 VAGINITIS 09/09/2009 GARY LOCOMOTIVE OPERATOR HELPER, CYNDI A 780.79 FATIGUE 09/09/2009 WILLEM ARTN, KATINA R 616.10 VAGINITIS 09/09/2009 WILLEM LOCOMOTIVE OPERATOR HELPER, KATINA R 780.79 FATIGUE 09/09/2009 GARY LOCOMOTIVE OPERATOR HELPER, CYNDI A 616.10 VAGINITIS 09/09/2009 GARY LOCOMOTIVE OPERATOR HELPER, CYNDI A 780.79 FATIGUE 12/06/2009 MARBELLA POWERS DO K 599.0 Urinary Tract Infection 12/06/2009 GRAY SOTO APRN 599.0 Urinary Tract Infection 12/06/2009 GARY LOCOMOTIVE OPERATOR HELPER, CYNDI A 599.0 Urinary Tract Infection 12/06/2009 GARY LOCOMOTIVE OPERATOR HELPER, CYNDI A 599.0 Urinary Tract Infection 12/06/2009 WILLEM ROBERTO, KATINA R 599.0 Urinary Tract Infection 12/06/2009 GARY LOCOMOTIVE OPERATOR HELPER, CYNDI A 599.0 Urinary Tract Infection 12/30/2009 MABRELLA POWERS DO V22.2 Incidental 12/30/2009 GRAY SOTO APRN V22.2 Incidental 12/30/2009 GARY LOCOMOTIVE OPERATOR HELPER, CYNDI A V22.2 Incidental 12/30/2009 GARY LOCOMOTIVE OPERATOR HELPER, CYNDI A V22.2 Incidental 12/30/2009 WILLEM ROBERTO, KATINA R V22.2 Incidental 12/30/2009 GARY LOCOMOTIVE OPERATOR HELPER, CYNDI A V22.2 Incidental 01/16/2010 MARBELLA POWERS DO 536.8 Dyspepsia And Other Specified Disorders Of Function Of Stomach 01/16/2010 MARBELLA POWERS DO V74.5 visit for: screening exam bact/spirochetal venereal disease 01/16/2010 GRAY SOTO APRN 536.8 Dyspepsia And Other Specified Disorders Of Function Of Stomach 01/16/2010 GRAY SOTO APRN V74.5 visit for: screening exam bact/spirochetal venereal disease 01/16/2010 JENNIFER VEGA APRNIDI A 536.8 Dyspepsia And Other Specified Disorders Of Function Of Stomach 01/16/2010 JENNIFER VEGA APRNIDI A V74.5 visit for: screening exam bact/spirochetal venereal disease 01/16/2010 JENNIFER VEGA APRNIDI A 536.8 Dyspepsia And Other Specified Disorders Of Function Of Stomach 01/16/2010 JENNIFER VEGA APRNIDI A V74.5 visit for: screening exam bact/spirochetal venereal disease 01/16/2010 DEBORAH BANGURA APRNINA R 536.8 Dyspepsia And Other Specified Disorders Of Function Of Stomach 01/16/2010 WILLEM ROBERTO KATINA R V74.5 visit for: screening exam bact/spirochetal venereal disease 01/16/2010 JENNIFER VEGA APRNIDI A 536.8 Dyspepsia And Other Specified Disorders Of Function Of Stomach 01/16/2010 JENNIFER VEGA APRNIDI A V74.5 visit for: screening exam bact/spirochetal venereal disease 01/26/2010 MARBELLA POWERS DO 079.98 Chlamydia 01/26/2010 GRAY SOTO APRN 079.98 Chlamydia 01/26/2010 GARY ROBERTO CYNDI A 079.98 Chlamydia 01/26/2010 GARY ROBERTO, CYNDI A 079.98 Chlamydia 01/26/2010 WILLEM ROBERTO, KATINA R 079.98 Chlamydia 01/26/2010 GARY APRN, CYNDI A 079.98 Chlamydia 06/08/2010 Ot 655.73 10/29/2010 MARBELLA POWERS DO 278.01 OBESITY MORBID 10/29/2010 MARBELLA POWERS DO 788.1 pain during urination (dysuria) 10/29/2010 MARBELLA POWERS DO 789.60 Epigastric Pain 10/29/2010 GRAY SOTO APRN 278.01 OBESITY MORBID 10/29/2010 GRAY SOTO APRN 788.1 pain during urination (dysuria) 10/29/2010 GRAY SOTO APRN 789.60 Epigastric Pain 10/29/2010 GARY APRN, CYNDI A 278.01 OBESITY MORBID 10/29/2010 GARY LOCOMOTIVE OPERATOR HELPER, CYNDI A 788.1 pain during urination (dysuria) 10/29/2010 GARY APRN, CYNDI A 789.60 Epigastric Pain 10/29/2010 GARY APRN, CYNDI A 278.01 OBESITY MORBID 10/29/2010 GARY LOCOMOTIVE OPERATOR HELPER, CYNDI A 788.1 pain during urination (dysuria) 10/29/2010 GARY APRN, CYNDI A 789.60 Epigastric Pain 10/29/2010 DEBORAH BANGURA APRNINA R 278.01 OBESITY MORBID 10/29/2010 DEBORAH BANGURA APRNINA R 788.1 pain during urination (dysuria) 10/29/2010 DEBORAH BANGURA APRNINA R 789.60 Epigastric Pain 10/29/2010 GARYJENNIFER Mcgowan APRNIDI A 278.01 OBESITY MORBID 10/29/2010 GARY APRN, CYNDI A 788.1 pain during urination (dysuria) 10/29/2010 GARYJENNIFER Mcgowan APRNIDI A 789.60 Epigastric Pain 04/21/2011 MARBELLA POWERS DO V45.51 control method - intrauterine device (IUD) 04/21/2011 MARBELLA POWERS DO V72.31 ROUTINE PELVIC EXAM 04/21/2011 GRAY SOTO APRN V45.51 control method - intrauterine device (IUD) 04/21/2011 GRAY SOTO APRN V72.31 ROUTINE PELVIC EXAM 04/21/2011 CYNDI VEGA APRN V45.51 control method - intrauterine device (IUD) 04/21/2011 CYNDI VEGA APRN A V72.31 ROUTINE PELVIC EXAM 04/21/2011 CYNDI VEGA APRN V45.51 control method - intrauterine device (IUD) 04/21/2011 CYNDI VEGA APRN A V72.31 ROUTINE PELVIC EXAM 04/21/2011 KATINA BANGURA APRN V45.51 control method - intrauterine device (IUD) 04/21/2011 DEBORAH BANGURA APRNINA R V72.31 ROUTINE PELVIC EXAM 04/21/2011 CYNDI VEGA APRN A V45.51 control method - intrauterine device (IUD) 04/21/2011 GARY APRN, CYNDI A V72.31 ROUTINE PELVIC EXAM 05/12/2011 MARBELLA POWERS DO K 789.04 ABDOMINAL PAIN LEFT LOWER QUADRANT 05/12/2011 GRAY SOTO APRN 789.04 ABDOMINAL PAIN LEFT LOWER QUADRANT 05/12/2011 JENNIFER VEGA APRNIDI A 789.04 ABDOMINAL PAIN LEFT LOWER QUADRANT 05/12/2011 CYNDI VEGA APRN A 789.04 ABDOMINAL PAIN LEFT LOWER QUADRANT 05/12/2011 KATINA BANGURA APRN R 789.04 ABDOMINAL PAIN LEFT LOWER QUADRANT 05/12/2011 JENNIFER VEGA APRNIDI A 789.04 ABDOMINAL PAIN LEFT LOWER QUADRANT 09/08/2011 MARBELLA POWERS DO 564.1 IRRITABLE BOWEL SYNDROME 09/08/2011 GRAY SOTO APRN 564.1 IRRITABLE BOWEL SYNDROME 09/08/2011 CYNDI VEGA APRN A 564.1 IRRITABLE BOWEL SYNDROME 09/08/2011 CYNDI VEGA APRN A 564.1 IRRITABLE BOWEL SYNDROME 09/08/2011 KATINA BANGURA APRN R 564.1 IRRITABLE BOWEL SYNDROME 09/08/2011 CYNDI VEGA APRN A 564.1 IRRITABLE BOWEL SYNDROME 01/03/2012 MARBELLA POWERS DO 599.0 URINARY TRACT INFECTION 01/03/2012 MARBELLA POWERS DO V25.09 CONTRACEPTIVE COUNSELING - GENERAL 01/03/2012 GRAY SOTO APRN 599.0 URINARY TRACT INFECTION 01/03/2012 GRAY SOTO APRN V25.09 CONTRACEPTIVE COUNSELING - GENERAL 01/03/2012 CYNDI VEGA APRN A 599.0 URINARY TRACT INFECTION 01/03/2012 CYNDI VEGA APRN A V25.09 CONTRACEPTIVE COUNSELING - GENERAL 01/03/2012 CYNDI VEGA APRN A 599.0 URINARY TRACT INFECTION 01/03/2012 GARY LOCOMOTIVE OPERATOR HELPER, CYNDI A V25.09 CONTRACEPTIVE COUNSELING - GENERAL 01/03/2012 WILLEM LOCOMOTIVE OPERATOR HELPER, KATINA R 599.0 URINARY TRACT INFECTION 01/03/2012 WILLEM LOCOMOTIVE OPERATOR HELPER, KATINA R V25.09 CONTRACEPTIVE COUNSELING - GENERAL 01/03/2012 GARY LOCOMOTIVE OPERATOR HELPER, CYNDI A 599.0 URINARY TRACT INFECTION 01/03/2012 GARY LOCOMOTIVE OPERATOR HELPER, CYNDI A V25.09 CONTRACEPTIVE COUNSELING - GENERAL 03/15/2012 Ot 599.0 URIN TRACT INFECTION NOS 03/15/2012 Ot 789.00 ABDOMINAL PAIN, UNSPECIFIED SITE 06/16/2012 MARBELLA POWERS DO 465.9 UPPER RESPIRATORY INFECTION 06/16/2012 MARBELLA POWERS DO 784.91 POSTNASAL DRIP 06/16/2012 MARBELLA POWERS DO K 788.63 URINARY URGENCY 06/16/2012 GRAY SOTO APRN 465.9 UPPER RESPIRATORY INFECTION 06/16/2012 GRAY SOTO APRN M 784.91 POSTNASAL DRIP 06/16/2012 GRAY SOTO APRN 788.63 URINARY URGENCY 06/16/2012 GARY LOCOMOTIVE OPERATOR HELPER, CYNDI A 465.9 UPPER RESPIRATORY INFECTION 06/16/2012 GARY LOCOMOTIVE OPERATOR HELPER, CYNDI A 784.91 POSTNASAL DRIP 06/16/2012 GARY LOCOMOTIVE OPERATOR HELPER, CYNDI A 788.63 URINARY URGENCY 06/16/2012 GARY LOCOMOTIVE OPERATOR HELPER, CYNDI A 465.9 UPPER RESPIRATORY INFECTION 06/16/2012 GARY LOCOMOTIVE OPERATOR HELPER, CYNDI A 784.91 POSTNASAL DRIP 06/16/2012 GARY LOCOMOTIVE OPERATOR HELPER, CYNDI A 788.63 URINARY URGENCY 06/16/2012 WILLEM ARTN, KATINA R 465.9 UPPER RESPIRATORY INFECTION 06/16/2012 WILLEM LOCOMOTIVE OPERATOR HELPER, KATINA R 784.91 POSTNASAL DRIP 06/16/2012 WILLEM LOCOMOTIVE OPERATOR HELPER, KATINA R 788.63 URINARY URGENCY 06/16/2012 GARY LOCOMOTIVE OPERATOR HELPER, CYNDI A 465.9 UPPER RESPIRATORY INFECTION 06/16/2012 GARY LOCOMOTIVE OPERATOR HELPER, CYNDI A 784.91 POSTNASAL DRIP 06/16/2012 GARY LOCOMOTIVE OPERATOR HELPER, CYNDI A 788.63 URINARY URGENCY 07/12/2012 MARBELLA POWERS DO 623.5 LEUKORRHEA NOT SPECIFIED INFECTIVE 07/12/2012 MARBELLA POWERS DO 625.8 OTHER SPECIFIED SYMPTOMS ASSOCIATED WITH FEMALE GENITAL ORGANS 07/12/2012 GRAY SOTO APRN 623.5 LEUKORRHEA NOT SPECIFIED INFECTIVE 07/12/2012 GRAY SOTO APRN 625.8 OTHER SPECIFIED SYMPTOMS ASSOCIATED WITH FEMALE GENITAL ORGANS 07/12/2012 CYNDI VEGA APRN A 623.5 LEUKORRHEA NOT SPECIFIED INFECTIVE 07/12/2012 CYNDI VEGA APRN A 625.8 OTHER SPECIFIED SYMPTOMS ASSOCIATED WITH FEMALE GENITAL ORGANS 07/12/2012 CYNDI VEGA APRN A 623.5 LEUKORRHEA NOT SPECIFIED INFECTIVE 07/12/2012 CYNDI VEGA APRN A 625.8 OTHER SPECIFIED SYMPTOMS ASSOCIATED WITH FEMALE GENITAL ORGANS 07/12/2012 DEBORAH BANGURA APRNINA R 623.5 LEUKORRHEA NOT SPECIFIED INFECTIVE 07/12/2012 DEBORAH BANGURA APRNINA R 625.8 OTHER SPECIFIED SYMPTOMS ASSOCIATED WITH FEMALE GENITAL ORGANS 07/12/2012 CYNDI VEGA APRN A 623.5 LEUKORRHEA NOT SPECIFIED INFECTIVE 07/12/2012 GARYCYNDI Mcgowan APRN A 625.8 OTHER SPECIFIED SYMPTOMS ASSOCIATED WITH FEMALE GENITAL ORGANS 10/13/2012 GRAY SOTO APRN 461.9 SINUSITIS ACUTE 10/13/2012 CYNDI VEGA APRN A 461.9 SINUSITIS ACUTE 10/13/2012 CYNDI VEGA APRN A 461.9 SINUSITIS ACUTE 10/13/2012 KATINA BANGURA APRN R 461.9 SINUSITIS ACUTE 10/13/2012 CYNDI VEGA APRN A 461.9 SINUSITIS ACUTE 03/23/2013 ASHLEY RAE MD Ot 388.70 OTALGIA NOS 03/23/2013 ASHLEY RAE MD Ot 461.9 ACUTE SINUSITIS NOS 03/28/2013 CYNDI VEGA APRN A 616.0 CERVICITIS AND ENDOCERVICITIS 03/28/2013 CYNDI VEGA APRN V25.42 CONTRACEPTION SURVEILLANCE (IUD) 03/28/2013 CYNDI VEGA APRN V65.3 COUNSELING- OBESITY (DIET) 03/28/2013 CYNDI VEGA APRN V73.81 HPV SCREENING 03/28/2013 GARY LOCOMOTIVE OPERATOR HELPER, CYNDI A V76.10 BREAST CANCER SCREENING 03/28/2013 GARY APRN, CYNDI A V76.2 CERVICAL CANCER SCREENING (PAP SMEAR) 03/28/2013 GARYJENNIFER Mcgowan APRNIDI A 616.0 CERVICITIS AND ENDOCERVICITIS 03/28/2013 GARY APRN, CYNDI A V25.42 CONTRACEPTION SURVEILLANCE (IUD) 03/28/2013 GARYJENNIFER Mcgowan APRNIDI A V65.3 COUNSELING- OBESITY (DIET) 03/28/2013 GARYJENNIFER Mcgowan APRNIDI A V73.81 HPV SCREENING 03/28/2013 GARYCYNDI Mcgowan APRN A V76.10 BREAST CANCER SCREENING 03/28/2013 CYNDI VEGA APRN A V76.2 CERVICAL CANCER SCREENING (PAP SMEAR) 03/28/2013 DEBORAH BANGURA APRNINA R 616.0 CERVICITIS AND ENDOCERVICITIS 03/28/2013 DEBORAH BANGURA APRNINA R V25.42 CONTRACEPTION SURVEILLANCE (IUD) 03/28/2013 KATINA BANGURA APRN V65.3 COUNSELING- OBESITY (DIET) 03/28/2013 DEBORAH BANGURA APRNINA R V73.81 HPV SCREENING 03/28/2013 DEBORAH BANGURA APRNINA R V76.10 BREAST CANCER SCREENING 03/28/2013 DEBORAH BANGURA APRNINA R V76.2 CERVICAL CANCER SCREENING (PAP SMEAR) 03/28/2013 CYNDI VEGA APRN A 616.0 CERVICITIS AND ENDOCERVICITIS 03/28/2013 CYNDI VEGA APRN A V25.42 CONTRACEPTION SURVEILLANCE (IUD) 03/28/2013 CYNDI VEGA APRN A V65.3 COUNSELING- OBESITY (DIET) 03/28/2013 CYNDI VEGA APRN A V73.81 HPV SCREENING 03/28/2013 JENNIFER VEGA APRNIDI A V76.10 BREAST CANCER SCREENING 03/28/2013 JENNIFER VEGA APRNIDI A V76.2 CERVICAL CANCER SCREENING (PAP SMEAR) 10/01/2014 DEBORAH BANGURA APRNINA R 692.9 CONTACT DERMATITIS AND OTHER ECZEMA UNSPECIFIED CAUSE 10/01/2014 CYNDI VEGA APRN A 692.9 CONTACT DERMATITIS AND OTHER ECZEMA UNSPECIFIED CAUSE 09/29/2015 Ot 625.9 09/29/2015 Ot V45.51 09/29/2015 MARIA G 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 Ot F17.210 NICOTINE DEPENDENCE, CIGARETTES, UNCOMPL 09/29/2015 MARIA G 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 Ot S06.0X2A CONCUSSION W LOSS OF CONSCIOUSNESS OF 32 09/29/2015 MARIA G 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 Ot W03.XXXA OTH FALL SAME LEV DUE TO COLLISION W ANO 09/29/2015 MARIA G 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 Ot Y92.[address] 09/29/2015 MARIA G 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 Ot Y99.8 OTHER EXTERNAL CAUSE STATUS 09/29/2015 Ot 625.9 09/29/2015 Ot V45.51 Procedures Code Description [place] [address] UA W/ CULTURE IF INDICATED 06/16/2012 36944 CULTURE URINE 06/16/2012 98493 CULTURE UROGENITAL 07/12/2012 24197 GC/CHLAM PROBE (STATE) 07/12/2012 53189 TRICHOMONAS (IN-HOUSE) 07/12/2012 11003 TRICHOMONAS (IN-HOUSE) 03/28/2013 54303 GC/CHLAM PROBE (STATE) 03/30/2013 35653 PAP SMEAR 03/30/2013 Q0091 PAP SMEAR OBTAIN SMEAR 03/30/2013 18685 CULTURE UROGENITAL 04/01/2013 10436 TRICHOMONAS (IN-HOUSE) 01/24/2014 40912 CULTURE UROGENITAL 01/24/2014 93583 GC/CHLAM PROBE (STATE) 01/24/2014 82697 TRICHOMONAS (IN-HOUSE) 11/25/2014 00347 CULTURE UROGENITAL 11/26/2014 88601 GC/CHLAM PROBE (STATE) 11/26/2014 Results Test Result Range Complete urinalysis with reflex to culture - 01/16/19 18:47 Urine color determination YELLOW NRG Urine clarity determination SLIGHTLY CLOUDY NRG Urine pH measurement by test strip 6 5-9 Specific gravity of urine by test strip 1.025 1.016-1.022 Urine protein assay by test strip, semi-quantitative 2+ NEGATIVE Urine glucose detection by automated test strip NEGATIVE NEGATIVE Erythrocytes detection in urine sediment by light microscopy 5+ NEGATIVE Urine ketones detection by automated test strip NEGATIVE NEGATIVE Urine nitrite detection by test strip NEGATIVE NEGATIVE Urine total bilirubin detection by test strip NEGATIVE NEGATIVE Urine urobilinogen measurement by automated test strip (mass/volume) NORMAL NORMAL Urine leukocyte esterase detection by dipstick 3+ NEGATIVE Automated urine sediment erythrocyte count by microscopy (number/high power field) [HPF] NRG Automated urine sediment leukocyte count by microscopy (number/high power field) > [HPF] NRG Bacteria detection in urine sediment by light microscopy MODERATE NRG Squamous epithelial cells detection in urine sediment by light microscopy 5-10 NRG Crystals detection in urine sediment by light microscopy NONE NRG Casts detection in urine sediment by light microscopy NONE NRG Mucus detection in urine sediment by light microscopy SMALL NRG Complete urinalysis with reflex to culture YES NRG Complete blood count (CBC) with automated white blood cell (WBC) differential - 01/16/19 19:15 Blood leukocytes automated count (number/volume) 13.3 10*3/uL 4.3-11.0 Blood erythrocytes automated count (number/volume) 4.02 10*6/uL 4.35-5.85 Venous blood hemoglobin measurement (mass/volume) 11.5 g/dL 11.5-16.0 Blood hematocrit (volume fraction) 36 % 35-52 Automated erythrocyte mean corpuscular volume 90 [foz_us] 80-99 Automated erythrocyte mean corpuscular hemoglobin (mass per erythrocyte) 29 pg 25-34 Automated erythrocyte mean corpuscular hemoglobin concentration measurement (mass/volume) 32 g/dL 32-36 Automated erythrocyte distribution width ratio 15.5 % 10.0- 14.5 Automated blood platelet count (count/volume) 170 10*3/uL 130-400 Automated blood platelet mean volume measurement 11.9 [foz_us] 7.4-10.4 Automated blood neutrophils/100 leukocytes 74 % 42-75 Automated blood lymphocytes/100 leukocytes 16 % 12-44 Blood monocytes/100 leukocytes 8 % 0-12 Automated blood eosinophils/100 leukocytes 2 % 0-10 Automated blood basophils/100 leukocytes 0 % 0-10 Blood neutrophils automated count (number/volume) 9.8 10*3 1.8-7.8 Blood lymphocytes automated count (number/volume) 2.1 10*3 1.0-4.0 Blood monocytes automated count (number/volume) 1.1 10*3 0.0- 1.0 Automated eosinophil count 0.3 10*3/uL 0.0-0.3 Automated blood basophil count (count/volume) 0.0 10*3/uL 0.0-0.1 Whole blood basic metabolic panel - 01/16/19 19:15 Serum or plasma sodium measurement (moles/volume) 137 mmol/L 135-145 Serum or plasma potassium measurement (moles/volume) 4.0 mmol/L 3.6-5.0 Serum or plasma chloride measurement (moles/volume) 107 mmol/L 98-107 Carbon dioxide 21 mmol/L 21-32 Serum or plasma anion gap determination (moles/volume) 9 mmol/L 5-14 Serum or plasma urea nitrogen measurement (mass/volume) 12 mg/dL 7-18 Serum or plasma creatinine measurement (mass/volume) 0.68 mg/dL 0.60-1.30 Serum or plasma urea nitrogen/creatinine mass ratio 18 NRG Serum or plasma creatinine measurement with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
== END 2019-01-16 19:53 | disposition home or self-care (01) ==
LOC: EDUNIT# 17:42 → ER 17:43
DX: N39.0 Urinary tract infection, site not specified (principal); K58.9 Irritable bowel syndrome, unspecified; F17.200 Nicotine dependence, unspecified, uncomplicated; Z97.5 Presence of (intrauterine) contraceptive device; Z88.2 Allergy status to sulfonamides; Z88.8 Allergy status to other drugs, medicaments and biological substances; Z88.0 Allergy status to penicillin
CPT/HCPCS: 36415; 76830; 76856; 80048; 81000; 83880; 84703; 85025; 87088